=== PATIENT | male | born 1935 | race Caucasian/White ===

== ENCOUNTER 2017-07-07 10:51 | Inpatient (IN) | payer OTHER, MEDICARE ==
[2017-07-07] VITALS (8 sets, daily range): BP systolic 106–123; BP diastolic 65–83; PULSE 100–116; RESP 14–18; TEMP 96.6–97.9; O2SAT 93–99
[~2017-07-07] VITALS: Ht 172.7 cm; Wt 60.0 kg
[2017-07-07] MEDS ORDERED: LORTS PO (11:33)
--- NOTE | 2017-07-07 12:27 | PD ---
HPI Chief Complaint: Cold / Flu Symptoms Time Seen by Provider: 11:52 Travel History International Travel<30 days: No Contact w/Intl Traveler<30days: No Traveled to known affect area: No History of Present Illness HPI 81 year old male here for evaluation of cough, wheezing, nasal congestion for the last week. He denies fever or chills. He reports shortness of breath with coughing episodes. He was unable to sleep last night due to the wheezing and coughing prompting his visit this morning. He reports his only past medical history is chronic right knee pain. His primary care physician is Dr. Marcelino Reyes. He denies chest pain, palpitations, or abdominal pain. Symptom severity is moderate. No alleviating factors. PFSH Past Medical History Arthritis: Yes Tetanus Vaccination: > 5 Years Influenza Vaccination: Yes Past Surgical History Joint Replacement: Yes (right knee) Social History Alcohol Use: No Tobacco Use: No Substance Use: No Allergies-Medications (Allergen,Severity, Reaction): Coded Allergies: No Known Allergies (Unverified , 07/07/17) Reported Meds & Prescriptions Reported Meds & Active Scripts Active Reported [Lortab] 1 Tab PO DIRECTED Review of Systems Except as stated in HPI: all other systems reviewed are Neg General / Constitutional: No: Fever Respiratory: Positive: Cough, Shortness of Breath, Wheezing, Sneezing Physical Exam Narrative GENERAL: Alert elderly male in no distress. SKIN: Warm and dry. HEAD: Normocephalic. EYES: No scleral icterus. No injection or drainage. NECK: Supple, trachea midline. No JVD or lymphadenopathy. CARDIOVASCULAR: Tachycardic rate in the low 100s. Regular rate and rhythm without murmurs, gallops, or rubs. RESPIRATORY: Expiratory wheezes bilaterally. Diminished breath sounds bilaterally at bases. No accessory muscle use. GASTROINTESTINAL: Abdomen soft, non-tender, nondistended. MUSCULOSKELETAL: No cyanosis, or edema. BACK: Nontender without obvious deformity. No CVA tenderness. Data Data Last Documented VS Vital Signs Date Time Temp Pulse Resp B/P (MAP) Pulse Ox O2 Delivery O2 Flow Rate FiO2 07/07/17 14:23 107 18 107/74 (85) 98 Nasal Cannula 2.00 07/07/17 11:12 97.7 Orders Orders Basic Metabolic Panel (Bmp) (07/07/17 12:20) Complete Blood Count With Diff (07/07/17 12:20) Lactic Acid Sepsis Protocol (07/07/17 12:20) Influenzae A/B Antigen (07/07/17 12:20) Chest, Single Ap (07/07/17 12:20) Iv Access Insert/Monitor (07/07/17 12:20) Oximetry (07/07/17 12:20) Sodium Chloride 0.9% Flush (Ns Flush) (07/07/17 12:30) Albuterol-Ipratropium Neb (Duoneb Neb) (07/07/17 12:30) Methylprednisolone So Succ Inj (Solumedr (07/07/17 12:30) Prednisone (Deltasone) (07/07/17 12:30) B-Type Natriuretic Peptide (07/07/17 13:01) Act Partial Throm Time (Ptt) (07/07/17 13:01) Prothrombin Time / Inr (Pt) (07/07/17 13:01) Electrocardiogram (07/07/17 13:01) Sodium Chloride 0.9% Flush (Ns Flush) (07/07/17 13:30) Ceftriaxone Inj (Rocephin Inj) (07/07/17 13:30) Azithromycin Inj (Zithromax Inj) (07/07/17 13:30) Blood Culture (07/07/17 13:36) Troponin I (07/07/17 13:00) Urinalysis - C+S If Indicated (07/07/17 14:31) Sodium Chlorid 0.9% 500 Ml Inj (Ns 500 M (07/07/17 14:45) Sodium Chloride 0.9% Flush (Ns Flush) (07/07/17 14:45) Sodium Chloride 0.9% Flush (Ns Flush) (07/07/17 21:00) Acetaminophen (Tylenol) (07/07/17 14:45) Albuterol-Ipratropium Neb (Duoneb Neb) (07/07/17 14:45) Admit To Inpatient (07/07/17 ) Vital Signs (Adult) Q4H (07/07/17 14:45) Activity Oob With Assistance PRN (07/07/17 14:45) Notify Parameters (07/07/17 14:45) Intake + Output Q8H (07/07/17 14:45) ^ Smoking Cessation Counseling (07/07/17 14:45) Complete Blood Count With Diff (07/08/17 06:00) Basic Metabolic Panel (Bmp) (07/08/17 06:00) Resp Oxygen Christian C Titrat 1-4 L (07/07/17 ) Admit Order (Ed Use Only) (07/07/17 14:46) Azithromycin Inj (Zithromax Inj) (07/08/17 14:00) Ceftriaxone Inj (Rocephin Inj) (07/08/17 13:00) Labs Laboratory Tests Test 07/07/17 13:00 07/07/17 13:05 07/07/17 13:30 07/07/17 14:31 White Blood Count 22.1 TH/MM3 Red Blood Count 4.84 MIL/MM3 Hemoglobin 14.4 GM/DL Hematocrit 44.1 % Mean Corpuscular Volume 91.2 FL Mean Corpuscular Hemoglobin 29.8 PG Mean Corpuscular Hemoglobin Concent 32.6 % Red Cell Distribution Width 15.4 % Platelet Count 267 TH/MM3 Mean Platelet Volume 7.9 FL Neutrophils (%) (Auto) 59.7 % Lymphocytes (%) (Auto) 4.3 % Monocytes (%) (Auto) 2.1 % Eosinophils (%) (Auto) 33.7 % Basophils (%) (Auto) 0.2 % Neutrophils # (Auto) 13.3 TH/MM3 Lymphocytes # (Auto) 0.9 TH/MM3 Monocytes # (Auto) 0.5 TH/MM3 Eosinophils # (Auto) 7.4 TH/MM3 Basophils # (Auto) 0.0 TH/MM3 CBC Comment DIFF FINAL Differential Comment Blood Urea Nitrogen 21 MG/DL Creatinine 1.60 MG/DL Random Glucose 113 MG/DL Calcium Level 8.9 MG/DL Sodium Level 138 MEQ/L Potassium Level 4.4 MEQ/L Chloride Level 101 MEQ/L Carbon Dioxide Level 29.7 MEQ/L Anion Gap 7 MEQ/L Estimat Glomerular Filtration Rate 41 ML/MIN Troponin I 0.02 NG/ML Lactic Acid Level 2.2 mmol/L Prothrombin Time 12.3 SEC Prothromb Time International Ratio 1.1 RATIO Activated Partial Thromboplast Time 27.6 SEC B-Type Natriuretic Peptide 193 PG/ML Urine Color YELLOW Urine Turbidity HAZY Urine pH 5.0 Urine Specific [place] 1.019 Urine Protein TRACE mg/dL Urine Glucose (UA) NEG mg/dL Urine Ketones NEG mg/dL Urine Occult Blood LARGE Urine Nitrite NEG Urine Bilirubin NEG Urine Leukocyte Esterase SMALL Urine RBC 25-49 /hpf Urine WBC 3-5 /hpf Urine Squamous Epithelial Cells 6-8 /hpf Urine Bacteria RARE /hpf Microscopic Urinalysis Comment CULT NOT INDICATED MDM Medical Decision Making Medical Screen Exam Complete: Yes Emergency Medical Condition: Yes Interpretation(s) CBC: Leukocytosis WBC 22 BMP: BUN 21, creatinine 1.62 Lactic: 2.2 BNP: BUN 21, Cr 1.60 Troponin: Less than 0.02 EKG: Afib at 108bpm. No ST segment elevation or depression. CXR: probable mild failure Differential Diagnosis Pneumonia, influenza, CHF Narrative Course 81-year-old male with cough, wheezing, shortness of breath 1 week. His vital signs in triage showed a pulse ox of 93% on room air and heart rate of 108. Patient was placed on continuous cardiac and pulse oximetry monitoring. IV access established, lab work, chest x-ray, EKG, blood cultures ordered and pending. Patient was given prednisone and DuoNeb treatments. Lab work reviewed. Patient has markedly leukocytosis, lactic acidosis and abnormal vital signs. Patient meets sepsis criteria with presumed pneumonia as a source. Spoke with Dr. Julissa Diez who agrees to admit patient to their service. Sepsis Criteria SIRS Criteria (2 or more): Heart rate over 90, WBC > 29551, < 4000 or > 10% bands Diagnosis Primary Impression: Sepsis Qualified Codes: A41.9 - Sepsis, unspecified organism Additional Impression: New onset a-fib Admitting Information Admitting Physician Requests: Admit Francisca Browne Jul 07, 2017 12:27
[2017-07-07] MEDS ORDERED: predniSONE 20 MG TAB PO ONE (12:30)
[2017-07-07] MEDS ORDERED: methylPREDNISolone SOD SUCC 125 MG/2 ML VIAL IV PUSH ONE (12:30)
[2017-07-07] MEDS ORDERED: RESP: ALBUTEROL 2.5 MG/IPRATROPIUM 0.5 MG NEB (SCH) INH ONE (12:30)
[2017-07-07] MEDS ORDERED: SODIUM CHLORIDE 0.9% FLUSH 10 ML FLUSH IVF PRN ×2 (12:30→13:30)
--- NOTE | 2017-07-07 12:59 | RADRPT ---
EXAM DATE/TIME: 07/07/2017 12:40 [facility] COMPARISON: No previous studies available for comparison. INDICATIONS : Shortness of breath and 'wheezing' for a week , worsening last night. MEDICAL HISTORY : None. SURGICAL HISTORY : None. ENCOUNTER: Initial ACUITY: 4 - 6 days PAIN SCORE: 4/10 LOCATION: Bilateral chest FINDINGS: Heart is minimally enlarged. Mild peribronchial thickening is present with interstitial prominence. Congestive failure could be consideration. There is no pneumothorax, pleural effusion or other cons olidation. CONCLUSION: Probable mild congestive failure. Yogesh Kilgore MD FACR on July 07, 2017 at 12:56 Board Certified Radiologist. This report was verified electronically.
[2017-07-07 13:07] LABS: AUTOMATED NEUTROPHIL # 13.3 TH/MM3 (1.8-7.7); BASOPHIL % 0.2 % (0.0-2.0); EOSINOPHIL # 7.4 TH/MM3 (0-0.4); EOSINOPHIL % 33.7 % (0.0-4.0); HEMATOCRIT 44.1 % (39.0-51.0); LYMPH % 4.3 % (9.0-44.0); LYMPHOCYTE # 0.9 TH/MM3 (1.0-4.8); MEAN CELL VOLUME 91.2 FL (80.0-100.0); MEAN CORPUSCULAR HEMOGLOBIN 29.8 PG (27.0-34.0); MEAN CORPUSCULAR HGB CONC 32.6 % (32.0-36.0); MONO % 2.1 % (0.0-8.0); NEUT % 59.7 % (16.0-70.0); PLATELET COUNT 267 TH/MM3 (150-450); RED BLOOD COUNT 4.84 MIL/MM3 (4.50-5.90); RED CELL DISTRIBUTION WIDTH 15.4 % (11.6-17.2); WHITE BLOOD COUNT 22.1 TH/MM3 (4.0-11.0)
[2017-07-07 13:08] LABS: HEMO FLAGS DIFF FINAL
[2017-07-07 13:24] LABS: POTASSIUM 4.4 MEQ/L (3.5-5.1)
[2017-07-07 13:27] LABS: BICARBONATE 29.7 MEQ/L (21.0-32.0)
[2017-07-07] MEDS ORDERED: AZITHROMYCIN INJ 500 MG in SODIUM CHLOR 0.9% 250 ML INJ 250 ML IV ONE (13:30)
[2017-07-07] MEDS ORDERED: cefTRIAXone INJ 1,000 MG in SODIUM CHLORIDE 0.9% INJ 100 ML IV ONE (13:30)
[2017-07-07 13:51] LABS: APTT (PATIENT) 27.6 SEC (24.3-30.1); INTERNATIONAL NORMALIZED RATIO 1.1 RATIO; PROTHROMBIN TIME - PATIENT 12.3 SEC (9.8-11.6)
--- NOTE | 2017-07-07 14:15 | PD ---
Physical Exam Narrative I, Dr. Poole, have reviewed the advance practice practitioner's documentation and am in agreement, met with the patient face to face, made the diagnosis, and the medical decision making was done by me. *My assessment and Findings: Sepsis secondary to pneumonia vs. URI vs. new onset afib 81yo M here with cough and found to be tachycardic and O2 sat 93% on RA. HR is in the low 100s and irregular on the monitor. No history of afib. Pt wheezing bilaterally and saturating at 97% on 2L NC. Denies any chest pain. Had some sob prior to arrival. Labs reviewed, leukocytosis at 22.1. Lactic acid mildly elevated at 2.2. Creatinine is elevated at 1.60. Pt has no prior lab to compare to so presumed SUZI secondary to sepsis. Pt given methylprednisone and duonebs x3. Also given ceftriaxone and azithromycin and NS 500cc IVC. BNP is 193. CXR showed probably mild congestive failure. Pt to be admitted for sepsis secondary to likely pneumonia and new onset afib RVR. Accepted to Dr. Diez's service. Data Data Last Documented VS Vital Signs Date Time Temp Pulse Resp B/P (MAP) Pulse Ox O2 Delivery O2 Flow Rate FiO2 07/07/17 14:23 107 18 107/74 (85) 98 Nasal Cannula 2.00 07/07/17 11:12 97.7 Orders Orders Basic Metabolic Panel (Bmp) (07/07/17 12:20) Complete Blood Count With Diff (07/07/17 12:20) Lactic Acid Sepsis Protocol (07/07/17 12:20) Influenzae A/B Antigen (07/07/17 12:20) Chest, Single Ap (07/07/17 12:20) Iv Access Insert/Monitor (07/07/17 12:20) Oximetry (07/07/17 12:20) Sodium Chloride 0.9% Flush (Ns Flush) (07/07/17 12:30) Albuterol-Ipratropium Neb (Duoneb Neb) (07/07/17 12:30) Methylprednisolone So Succ Inj (Solumedr (07/07/17 12:30) Prednisone (Deltasone) (07/07/17 12:30) B-Type Natriuretic Peptide (07/07/17 13:01) Act Partial Throm Time (Ptt) (07/07/17 13:01) Prothrombin Time / Inr (Pt) (07/07/17 13:01) Electrocardiogram (07/07/17 13:01) Sodium Chloride 0.9% Flush (Ns Flush) (07/07/17 13:30) Ceftriaxone Inj (Rocephin Inj) (07/07/17 13:30) Azithromycin Inj (Zithromax Inj) (07/07/17 13:30) Blood Culture (07/07/17 13:36) Troponin I (07/07/17 13:00) Urinalysis - C+S If Indicated (07/07/17 14:31) Sodium Chlorid 0.9% 500 Ml Inj (Ns 500 M (07/07/17 14:45) Sodium Chloride 0.9% Flush (Ns Flush) (07/07/17 14:45) Sodium Chloride 0.9% Flush (Ns Flush) (07/07/17 21:00) Acetaminophen (Tylenol) (07/07/17 14:45) Albuterol-Ipratropium Neb (Duoneb Neb) (07/07/17 14:45) Admit To Inpatient (07/07/17 ) Vital Signs (Adult) Q4H (07/07/17 14:45) Activity Oob With Assistance PRN (07/07/17 14:45) Notify Parameters (07/07/17 14:45) Intake + Output Q8H (07/07/17 14:45) ^ Smoking Cessation Counseling (07/07/17 14:45) Complete Blood Count With Diff (07/08/17 06:00) Basic Metabolic Panel (Bmp) (07/08/17 06:00) Resp Oxygen Christian C Titrat 1-4 L (07/07/17 ) Admit Order (Ed Use Only) (07/07/17 14:46) Azithromycin Inj (Zithromax Inj) (07/08/17 14:00) Ceftriaxone Inj (Rocephin Inj) (07/08/17 13:00) Labs Laboratory Tests Test 07/07/17 13:00 07/07/17 13:05 07/07/17 13:30 07/07/17 14:31 White Blood Count 22.1 TH/MM3 Red Blood Count 4.84 MIL/MM3 Hemoglobin 14.4 GM/DL Hematocrit 44.1 % Mean Corpuscular Volume 91.2 FL Mean Corpuscular Hemoglobin 29.8 PG Mean Corpuscular Hemoglobin Concent 32.6 % Red Cell Distribution Width 15.4 % Platelet Count 267 TH/MM3 Mean Platelet Volume 7.9 FL Neutrophils (%) (Auto) 59.7 % Lymphocytes (%) (Auto) 4.3 % Monocytes (%) (Auto) 2.1 % Eosinophils (%) (Auto) 33.7 % Basophils (%) (Auto) 0.2 % Neutrophils # (Auto) 13.3 TH/MM3 Lymphocytes # (Auto) 0.9 TH/MM3 Monocytes # (Auto) 0.5 TH/MM3 Eosinophils # (Auto) 7.4 TH/MM3 Basophils # (Auto) 0.0 TH/MM3 CBC Comment DIFF FINAL Differential Comment Blood Urea Nitrogen 21 MG/DL Creatinine 1.60 MG/DL Random Glucose 113 MG/DL Calcium Level 8.9 MG/DL Sodium Level 138 MEQ/L Potassium Level 4.4 MEQ/L Chloride Level 101 MEQ/L Carbon Dioxide Level 29.7 MEQ/L Anion Gap 7 MEQ/L Estimat Glomerular Filtration Rate 41 ML/MIN Troponin I 0.02 NG/ML Lactic Acid Level 2.2 mmol/L Prothrombin Time 12.3 SEC Prothromb Time International Ratio 1.1 RATIO Activated Partial Thromboplast Time 27.6 SEC B-Type Natriuretic Peptide 193 PG/ML Urine Color YELLOW Urine Turbidity HAZY Urine pH 5.0 Urine Specific [place] 1.019 Urine Protein TRACE mg/dL Urine Glucose (UA) NEG mg/dL Urine Ketones NEG mg/dL Urine Occult Blood LARGE Urine Nitrite NEG Urine Bilirubin NEG Urine Leukocyte Esterase SMALL Urine RBC 25-49 /hpf Urine WBC 3-5 /hpf Urine Squamous Epithelial Cells 6-8 /hpf Urine Bacteria RARE /hpf Microscopic Urinalysis Comment CULT NOT INDICATED MDM Supervised Visit with GONZALO: Yes Interpretation(s) EKG: Afib at 108bpm. LAD. No ST segment elevation or depression. Critical Care Narrative Aggregate critical care time was 35 minutes. Time to perform other separately billable procedures was not included in the critical care time. My time did not include minutes spent treating any other patients simultaneously or on activities that did not directly contribute to the patient's treatment. The services I provided to this patient were to treat and/or prevent clinically significant deterioration that could result in: Cardiovascular collapse or . I provided critical care services requiring my management, as noted below: Chart data review, documentation time, medication orders and management, vital sign assessments/reviewing monitor data, ordering and reviewing lab tests, ordering and interpreting/reviewing x- rays and diagnostic studies, care of the patient and discussion of the patient with the admitting physicians. Sepsis Criteria SIRS Criteria (2 or more): Heart rate over 90, WBC > 43642, < 4000 or > 10% bands Sepsis Criteria (SIRS+source): Infect source susp/known Severe Sepsis (+one): Lactate >2 Diagnosis Primary Impression: Sepsis Qualified Codes: A41.9 - Sepsis, unspecified organism Admitting Information Admitting Physician Requests: Admit Scripts Metoprolol Tartrate (Lopressor) 50 Mg Tab 50 MG PO Q12HR for heart rate, #62 TAB Prov: Julissa Diez MD 07/09/17 Aspirin (Aspirin) 325 Mg Tab 325 MG PO DAILY for heart, #30 TAB 0 Refills Prov: Julissa Diez MD 07/09/17 Cefdinir (Cefdinir) 300 Mg Cap 300 MG PO BID for Infection, #20 CAP 0 Refills Prov: Julissa Diez MD 07/09/17 Dextromethorphan-Guaifenesin (Mucinex DM) 30-600 Mg Tab 1 TAB PO BID Y for CHEST CONGESTION AND/OR COUGH, #30 TAB 0 Refills Prov: Julissa Diez MD 07/09/17 Meryl Poole DO Jul 07, 2017 14:15
[2017-07-07] MEDS ORDERED: SODIUM CHLORID 0.9% 500 ML INJ 500 ML IV SCH (14:45)
[2017-07-07] MEDS ORDERED: ACETAMINOPHEN 325 MG TAB PO PRN (14:45)
[2017-07-07] MEDS ORDERED: SODIUM CHLORIDE 0.9% FLUSH 10 ML FLUSH IV FLUSH PRN (14:45)
[2017-07-07 15:09] LABS: LACTIC ACID GHOST NOT REPORTABLE
[2017-07-07 17:56] LABS: BLOOD, URINE LARGE (NEG); GLUCOSE,URINE NEG (NEG); KETONE, URINE NEG (NEG); NITRITE,URINE NEG (NEG)
[2017-07-07] MEDS ORDERED: ACETAMINOPHEN/HYDROcodone 325 MG/5 MG TAB PO PRN (18:00)
[2017-07-07] MEDS ORDERED: PSEUDOEPHEDRINE HCL 30 MG TAB PO PRN (18:00)
--- NOTE | 2017-07-07 18:04 | HHI.HP ---
HPI Service [facility] Primary Care Physician Marcelino Rios MD Admission Diagnosis SEPSIS, NEW ONSET AFIB, PNA Diagnoses: Chief Complaint: Cough and shortness of breath Travel History International Travel<30 Days: No Contact w/Intl Traveler <30 Da: No Traveled to Known Affected Are: No Sepsis Criteria SIRS Criteria (2 or more): Heart rate over 90, RR > 20 or PaCO2 < 32, WBC > 24445, < 4000 or > 10% bands Sepsis Criteria (SIRS+source): Infect source susp/known Severe Sepsis (+one): Lactate >2 Criteria Outcome: Meets severe sepsis criteria History of Present Illness This patient is a 81-year-old gentleman who had 2-3 days of increased shortness of breath and work of breathing. He had some sputum production and sinus drainage. He came to the emergency room with complaints of wheezing. He is 97 % on 2 L. He had seen his primary doctor as he felt too ill. Came to the emergency room. He does have a history of smoking 67 years at a pack A day having quit in March when he had a right knee surgery. He also had significant alcohol dependency which she quit in March as well. He has presented now with new onset atrial fibrillation with a rate in the low 100s, and with signs and symptoms of sepsis related to probable pneumonia. Is given IV antibiotics and a bit better. He notes no fevers and no sick contacts. No recent travel. He did get some steroids and DuoNeb nebs in the emergency room and felt a bit better. He's been admitted to the hospital for further evaluation and treatment Review of Systems Constitutional: DENIES: Diaphoretic episodes, Fatigue, Fever, Weight gain, Weight loss, Chills, Dizziness, Change in appetite, Night Sweats Eyes: DENIES: Blurred vision, Diplopia, Eye inflammation, Eye pain, Vision loss , Photosensitivity, Double Vision Ears, nose, mouth, throat: DENIES: Tinnitus, Hearing loss, Vertigo, Nasal discharge, Oral lesions, Throat pain, Hoarseness, Ear Pain, Running Nose, Epistaxis, Sinus Pain, Toothache, Odynophagia Respiratory: COMPLAINS OF: Cough, Wheezing, Sputum production, Shortness of breath, DENIES: Apneas, Snoring, Hemoptysis Cardiovascular: DENIES: Chest pain, Palpitations, Syncope, Dyspnea on Exertion , PND, Lower Extremity Edema, Orthopnea, Claudication Gastrointestinal: DENIES: Abdominal pain, Black stools, Bloody stools, Constipation, Diarrhea, Nausea, Vomiting, Difficulty Swallowing, Anorexia Genitourinary: DENIES: Sexual dysfunction, Urinary frequency, Urinary incontinence, Urgency, Hematuria, Dysuria, Nocturia, Penile Discharge, Testicular Pain, Testicular Swelling Musculoskeletal: COMPLAINS OF: Joint pain, DENIES: Muscle aches, Stiffness, Joint Swelling, Back pain, Neck pain Integumentary: DENIES: Abnormal pigmentation, Nail changes, Pruritus, Rash Hematologic/lymphatic: DENIES: Bruising, Lymphadenopathy Immunologic/allergic: DENIES: Eczema, Urticaria Neurologic: DENIES: Abnormal gait, Headache, Localized weakness, Paresthesias, Seizures, Speech Problems, Tremor, Poor Balance Psychiatric: DENIES: Anxiety, Confusion, Mood changes, Depression, Hallucinations, Agitation, Suicidal Ideation, Homicidal Ideation, Delusions Except as stated in HPI: all other systems reviewed are Neg Past Family Social History Allergies: Coded Allergies: No Known Allergies (Unverified , 07/07/17) Physical Exam Vital Signs Vital Signs Date Time Temp Pulse Resp B/P (MAP) Pulse Ox O2 Delivery O2 Flow Rate FiO2 07/07/17 16:39 07/07/17 16:30 96.6 111 14 123/83 (96) 96 07/07/17 15:25 103 16 109/81 (90) 98 Room Air 07/07/17 14:23 107 18 107/74 (85) 98 Nasal Cannula 2.00 07/07/17 13:23 116 18 98 Nasal Cannula 2.00 07/07/17 13:06 99 Nasal Cannula 2.00 07/07/17 11:30 Room Air 07/07/17 11:12 97.7 108 18 107/65 (79) 93 Physical Exam GENERAL: This is a well-nourished, well-developed patient, was coughing and has sinus drainage SKIN: No rashes, ecchymoses or lesions. Cool and dry. HEAD: Atraumatic. Normocephalic. No temporal or scalp tenderness. EYES: Pupils equal round and reactive. Extraocular motions intact. No scleral icterus. No injection or drainage. ENT: Nose without bleeding, purulent drainage or septal hematoma. Throat without erythema, tonsillar hypertrophy or exudate. Uvula midline. Airway patent. NECK: Trachea midline. No JVD or lymphadenopathy. Supple, nontender, no meningeal signs. CARDIOVASCULAR: Atrial tachycardia irregular but without murmurs, gallops, or rubs. RESPIRATORY: Clear to auscultation. Breath sounds equal bilaterally. No wheezes , rales, or rhonchi. GASTROINTESTINAL: Abdomen soft, non-tender, nondistended. No hepato-splenomegaly , or palpable masses. No guarding. MUSCULOSKELETAL: Bilateral hands swan neck deformities and ulnar deviation consistent with rheumatoid arthritis, right knee surgery Extremities without clubbing, cyanosis, or edema. No joint tenderness, effusion, or edema noted. No calf tenderness. Negative Homans sign bilaterally. NEUROLOGICAL: Awake and alert. Cranial nerves II through XII intact. Motor and sensory grossly within normal limits. Five out of 5 muscle strength in all muscle groups. Normal speech. Laboratory Laboratory Tests Test 07/07/17 13:00 07/07/17 13:05 07/07/17 13:30 07/07/17 14:31 White Blood Count 22.1 Red Blood Count 4.84 Hemoglobin 14.4 Hematocrit 44.1 Mean Corpuscular Volume 91.2 Mean Corpuscular Hemoglobin 29.8 Mean Corpuscular Hemoglobin Concent 32.6 Red Cell Distribution Width 15.4 Platelet Count 267 Mean Platelet Volume 7.9 Neutrophils (%) (Auto) 59.7 Lymphocytes (%) (Auto) 4.3 Monocytes (%) (Auto) 2.1 Eosinophils (%) (Auto) 33.7 Basophils (%) (Auto) 0.2 Neutrophils # (Auto) 13.3 Lymphocytes # (Auto) 0.9 Monocytes # (Auto) 0.5 Eosinophils # (Auto) 7.4 Basophils # (Auto) 0.0 CBC Comment DIFF FINAL Differential Comment Blood Urea Nitrogen 21 Creatinine 1.60 Random Glucose 113 Calcium Level 8.9 Sodium Level 138 Potassium Level 4.4 Chloride Level 101 Carbon Dioxide Level 29.7 Anion Gap 7 Estimat Glomerular Filtration Rate 41 Troponin I 0.02 Lactic Acid Level 2.2 Prothrombin Time 12.3 Prothromb Time International Ratio 1.1 Activated Partial Thromboplast Time 27.6 B-Type Natriuretic Peptide 193 Test 07/07/17 15:40 Lactic Acid Level 2.1 Date/Time Source Procedure Growth Status 07/07/17 13:40 Blood Peripheral Aerobic Blood Culture Pending Received 07/07/17 13:40 Blood Peripheral Anaerobic Blood Culture Pending Received 07/07/17 13:00 Nasal Washing Influenza Types A,B Antigen (VIV) - Final NEGATIVE FOR FLU A AND B ANTIGEN.... Complete Result Diagram: 07/07/17 1300 07/07/17 1300 Imaging Last Impressions Chest X-Ray 07/07/17 1220 Signed Impressions: Service Date/Time: Friday, July 07, 2017 12:40 - CONCLUSION: Probable mild congestive failure. Yogesh Kilgore MD FACR Septic Shock Reassessment Heart: Irregular Lungs: Course, Crackles Caprini VTE Risk Assessment Caprini VTE Risk Assessment: Mod/High Risk (score >= 2) Caprini Risk Assessment Model Point Value = 1 Point Value = 2 Point Value = 3 Point Value = 5 Age 41-60 Minor surgery BMI > 25 kg/m2 Swollen legs Varicose veins or History of unexplained or recurrent spontaneous Oral contraceptives or hormone replacement Sepsis (< 1 month) Serious lung disease, including pneumonia (< 1 month) Abnormal pulmonary function Acute myocardial infarction Congestive heart failure (< 1 month) History of inflammatory bowel disease Medical patient at bed rest Age 61-74 Arthroscopic surgery Major open surgery (> 45 min) Laparoscopic surgery (> 45 min) Malignancy Confined to bed (> 72 hours) Immobilizing plaster cast Central venous access Age >= 75 History of VTE Family history of VTE Factor V Leiden Prothrombin [id number] Lupus anticoagulant Anticardiolipin antibodies Elevated serum homocysteine Heparin-induced thrombocytopenia Other congenital or acquired thrombophilia Stroke (< 1 month) Elective arthroplasty Hip, pelvis, or leg fracture Acute spinal cord injury (< 1 month) Prophylaxis Regimen Total Risk Factor Score Risk Level Prophylaxis Regimen 0-1 Low Early ambulation 2 Moderate Order ONE of the following: *Sequential Compression Device (SCD) *Heparin 5000 units SQ BID 3-4 Higher Order ONE of the following medications: *Heparin 5000 units SQ TID *Enoxaparin/Lovenox 40 mg SQ daily (WT < 150 kg, CrCl > 30 mL/min) *Enoxaparin/Lovenox 30 mg SQ daily (WT < 150 kg, CrCl > 10-29 mL/min) *Enoxaparin/Lovenox 30 mg SQ BID (WT < 150 kg, CrCl > 30 mL/min) AND/OR *Sequential Compression Device (SCD) 5 or more Highest Order ONE of the following medications: *Heparin 5000 units SQ TID (Preferred with Epidurals) *Enoxaparin/Lovenox 40 mg SQ daily (WT < 150 kg, CrCl > 30 mL/min) *Enoxaparin/Lovenox 30 mg SQ daily (WT < 150 kg, CrCl > 10-29 mL/min) *Enoxaparin/Lovenox 30 mg SQ BID (WT < 150 kg, CrCl > 30 mL/min) AND *Sequential Compression Device (SCD) Assessment and Plan Problem List: (1) Pneumonia ICD Code: J18.9 - Pneumonia, unspecified organism Plan: With evidence of sepsis with leukocytosis, acute kidney injury, likely lactic acid Continue antibiotics for community acquired negative Follow-up sputum Patient with a history of smoking and no previous diagnosis of COPD (2) New onset a-fib ICD Code: I48.91 - Unspecified atrial fibrillation Status: Acute Plan: Etiology unclear, follow-up electrolytes, echocardiogram, continue telemetry BB lmwh Assessment and Plan Plan of care to be determined by Hospital course Code Status Full code Discussed Condition With Patient, JULITA Cadet Physician Certification 2 Midnight Certification Type: Admission for Inpatient Services Order for Inpatient Services The services are ordered in accordance with Medicare regulations or non- Medicare payer requirements, as applicable. In the case of services not specified as inpatient-only, they are appropriately provided as inpatient services in accordance with the 2-midnight benchmark. Estimated LOS (days): 3 3 days is the estimated time the patient will need to remain in the hospital, assuming treatment plan goals are met and no additional complications. Post-Hospital Plan: Julissa Blair MD Jul 07, 2017 18:04
[2017-07-07] MEDS: ENOXAPARIN SODIUM 60 MG/0.6 ML SYRINGE SQ SCH (18:15)
[2017-07-07] MEDS: guaiFENesin/CODEINE SYRUP 200 MG/20 MG/10 ML CUP PO PRN (18:15)
[2017-07-07 18:30] LABS: URINE COLOR YELLOW (YELLW/STRAW)
[2017-07-07 18:31] LABS: BACTERIA, URINE RARE /hpf; COMMENT (UR) CULT NOT INDICATED; CULTURE IF INDICATED CULT NOT INDICATED
[2017-07-07] MEDS: SODIUM CHLORIDE 0.9% FLUSH 10 ML FLUSH IV FLUSH SCH (21:00)
[2017-07-07] MEDS: METOPROLOL TARTRATE 50 MG TAB PO SCH (21:56)
[2017-07-07] MEDS: RESP: ALBUTEROL 2.5 MG/IPRATROPIUM 0.5 MG NEB (PRN) INH (22:08)
[2017-07-08] VITALS (8 sets, daily range): BP systolic 86–103; BP diastolic 53–74; PULSE 76–90; RESP 18–22; TEMP 96.1–98.1; O2SAT 94–99
[2017-07-08] MEDS: ENOXAPARIN SODIUM 60 MG/0.6 ML SYRINGE SQ SCH ×2 (06:00→17:29)
[2017-07-08] MEDS: guaiFENesin/CODEINE SYRUP 200 MG/20 MG/10 ML CUP PO PRN ×2 (07:33→14:41)
[2017-07-08 08:26] LABS: AUTOMATED NEUTROPHIL # 12.1 TH/MM3 (1.8-7.7); BASOPHIL # 0.6 TH/MM3 (0-0.2); BASOPHIL % 3.5 % (0.0-2.0); EOSINOPHIL # 1.1 TH/MM3 (0-0.4); EOSINOPHIL % 6.7 % (0.0-4.0); HEMATOCRIT 37.8 % (39.0-51.0); HEMO FLAGS DIFF FINAL; LYMPH % 10.3 % (9.0-44.0); LYMPHOCYTE # 1.7 TH/MM3 (1.0-4.8); MEAN CELL VOLUME 90.8 FL (80.0-100.0); MEAN CORPUSCULAR HEMOGLOBIN 29.9 PG (27.0-34.0); MEAN CORPUSCULAR HGB CONC 32.9 % (32.0-36.0); MONO % 4.7 % (0.0-8.0); NEUT % 74.8 % (16.0-70.0); PLATELET COUNT 219 TH/MM3 (150-450); RED BLOOD COUNT 4.17 MIL/MM3 (4.50-5.90); WHITE BLOOD COUNT 16.3 TH/MM3 (4.0-11.0)
[2017-07-08 08:36] LABS: BICARBONATE 29.6 MEQ/L (21.0-32.0)
[2017-07-08] MEDS: predniSONE 20 MG TAB PO SCH ×2 (09:20→20:41)
[2017-07-08] MEDS: METOPROLOL TARTRATE 50 MG TAB PO SCH ×2 (09:20→20:42)
[2017-07-08] MEDS: SODIUM CHLORIDE 0.9% FLUSH 10 ML FLUSH IV FLUSH SCH ×2 (09:20→20:42)
[2017-07-08] MEDS: RESP: ALBUTEROL 2.5 MG/IPRATROPIUM 0.5 MG NEB (PRN) INH (11:50)
[2017-07-08] MEDS ORDERED: cefTRIAXone INJ 1,000 MG in SODIUM CHLORIDE 0.9% INJ 100 ML IV SCH (13:00)
--- NOTE | 2017-07-08 13:44 | HHI.PR ---
Subjective Remarks Patient seen and evaluated today in follow-up for pneumonia with improvement today. Atrial fibrillation is improved Heart rate improved, white cell count improved and cough is resolved Objective Vitals Vital Signs Date Time Temp Pulse Resp B/P (MAP) Pulse Ox O2 Delivery O2 Flow Rate FiO2 07/08/17 11:53 96 07/08/17 11:50 97.6 76 20 86/53 (64) 94 07/08/17 08:00 97 07/08/17 07:50 96.5 84 20 91/55 (67) 97 07/08/17 04:04 07/08/17 00:58 98.1 90 22 99/74 (82) 98 07/07/17 22:10 98 Nasal Cannula 2.00 07/07/17 20:44 97.9 100 18 106/79 (88) 97 07/07/17 16:39 07/07/17 16:30 96.6 111 14 123/83 (96) 96 07/07/17 15:25 103 16 109/81 (90) 98 Room Air 07/07/17 14:23 107 18 107/74 (85) 98 Nasal Cannula 2.00 I/O 07/07/17 07/07/17 07/07/17 07/08/17 07/08/17 07/08/17 07:00 15:00 23:00 07:00 15:00 23:00 Intake Total 350 ml 500 ml Output Total 350 ml Balance 350 ml 500 ml -350 ml Intake IV Total 350 ml 500 ml Output Urine Total 350 ml # Voids 2 # Bowel Movements 0 0 Result Diagram: 07/08/17 0805 07/08/17 0805 Imaging Last Impressions Chest X-Ray 07/07/17 1220 Signed Impressions: Service Date/Time: Friday, July 07, 2017 12:40 - CONCLUSION: Probable mild congestive failure. Yogesh Kilgore MD FACR Objective Remarks Orthopedic changes consistent with rheumatoid arthritis GENERAL: This is a well-nourished, well-developed patient, in no apparent distress. CARDIOVASCULAR: Regular rate and rhythm without murmurs, gallops, or rubs. RESPIRATORY: Clear to auscultation. Breath sounds equal bilaterally. No wheezes , rales, or rhonchi. GASTROINTESTINAL: Abdomen soft, non-tender, nondistended. Normal active bowel sounds MUSCULOSKELETAL: Extremities without clubbing, cyanosis, or edema. NEURO: Alert & Oriented x4 to person, place, time, situation. Moves all ext x4 A/P Problem List: (1) Pneumonia ICD Code: J18.9 - Pneumonia, unspecified organism Plan: With evidence of sepsis with leukocytosis, acute kidney injury, elevated lactic acid Continue antibiotics for community acquired pneumonia Unable to obtain sputum Patient with a history of smoking and no previous diagnosis of COPD (2) New onset a-fib ICD Code: I48.91 - Unspecified atrial fibrillation Status: Acute Plan: Etiology unclear but likely due to sepsis, resolved and in fact his blood pressure is low , follow-up electrolytes, echocardiogram, continue telemetry DC beta aime and follow lmwh daily (3) RA (rheumatoid arthritis) ICD Code: M06.9 - Rheumatoid arthritis, unspecified Plan: Stable but with gross deformities of the hands and right knee ( postoperatively also) Discharge Planning 2-3 d Julissa Diez MD Jul 08, 2017 13:44
[2017-07-08] MEDS ORDERED: AZITHROMYCIN INJ 500 MG in SODIUM CHLOR 0.9% 250 ML INJ 250 ML IV SCH (14:00)
--- NOTE | 2017-07-08 18:38 | ECHRPT ---
Indication: A FIB FLUTTER CONCLUSIONS Normal left ventricular size. Wall thickness is normal. The left ventricular systolic function is severely reduced with an estimated ejection fraction in th e range of 35-40%. The right ventricular systoilc function is mildly decreased. Mitral annular calcification is present. Aortic valve sclerosis is present. BP: / HR: Rhythm: MEASUREMENTS (Male / Female) Normal Values Technical Quality:Good 2D ECHO LV Diastolic Diameter PLAX 4.2 cm 4.2 - 5.9 / 3.9 - 5.3 cm LV Systolic Diameter PLAX 3.5 cm IVS Diastolic Thickness 1.0 cm 0.6 - 1.0 / 0.6 - 0.9 cm LVPW Diastolic Thickness 0.6 cm 0.6 - 1.0 / 0.6 - 0.9 cm LV Relative Wall Thickness 0.4 RV Internal Dim ED PLAX 1.5 cm DOPPLER Mitral E Point Velocity 83.4 cm/s TR Peak Velocity 247.0 cm/s TR Peak Gradient 24.4 mmHg FINDINGS LEFT VENTRICLE Normal left ventricular size. Wall thickness is normal. The left ventricular systolic function is severely reduced with an estimated ejection fraction in th e range of 30-35%. RIGHT VENTRICLE The right ventricular systoilc function is mildly decreased. LEFT ATRIUM The left atrial size is normal. RIGHT ATRIUM The right atrial size is normal. ATRIAL SEPTUM Normal atrial septal thickness without atrial level shunting by limited color doppler interrogation. AORTA The aortic root and proximal ascending aorta are normal in size on limited imaging. MITRAL VALVE Mitral annular calcification is present. AORTIC VALVE Aortic valve sclerosis is present. TRICUSPID VALVE Structurally normal tricuspid valve. No tricuspid valve stenosis or regurgitation. PULMONARY VALVE The pulmonary valve is not well visualized. VESSELS The inferior vena cava is normal in size. PERICARDIUM No pericardial effusion. William Puentes MD, FACC, FSCAI (Electronically Signed) Final Date:08 July 2017 18:37
[2017-07-09] VITALS: BP 117/64; PULSE 89; RESP 18; TEMP 96.4; O2SAT 98
[2017-07-09] MEDS: ENOXAPARIN SODIUM 60 MG/0.6 ML SYRINGE SQ SCH (05:30)
[2017-07-09] MEDS: guaiFENesin/CODEINE SYRUP 200 MG/20 MG/10 ML CUP PO PRN (05:34)
[2017-07-09] MEDS ORDERED: CEFD300C PO (07:49)
[2017-07-09] MEDS ORDERED: HUMIBIDDM PO (07:49)
--- NOTE | 2017-07-09 07:49 | HHI.DCPOC ---
Discharge Care Plan Diagnosis: (1) Sepsis (2) Pneumonia Goals to Promote Your Health * To prevent worsening of your condition and complications * To maintain your health at the optimal level Directions to Meet Your Goals Take your medications as prescribed Follow your dietary instruction Follow activity as directed Keep your appointments as scheduled Take your immunizations and boosters as scheduled If your symptoms worsen call your PCP, if no PCP go to Urgent Care Center or Emergency Room Smoking is Dangerous to Your Health. Avoid second hand smoke Call the 24-hour hour crisis hotline for domestic abuse at Julissa Diez MD Jul 09, 2017 07:49
[2017-07-09] MEDS ORDERED: ASPI-183 PO (07:53)
[2017-07-09] MEDS ORDERED: METO-309 PO (07:53)
--- NOTE | 2017-07-09 07:54 | HHI.DS ---
Discharge Summary Admission Date Jul 07, 2017 at 14:49 Discharge Date: Jul 09, 2017 Admitting Diagnosis SEPSIS, NEW ONSET AFIB, PNA (1) Pneumonia ICD Code: J18.9 - Pneumonia, unspecified organism (2) New onset a-fib ICD Code: I48.91 - Unspecified atrial fibrillation Status: Acute (3) RA (rheumatoid arthritis) ICD Code: M06.9 - Rheumatoid arthritis, unspecified Procedures none Brief History - From Admission This patient is a 81-year-old gentleman who had 2-3 days of increased shortness of breath and work of breathing. He had some sputum production and sinus drainage. He came to the emergency room with complaints of wheezing. He is 97 % on 2 L. He had seen his primary doctor as he felt too ill. Came to the emergency room. He does have a history of smoking 67 years at a pack A day having quit in March when he had a right knee surgery. He also had significant alcohol dependency which she quit in March as well. He has presented now with new onset atrial fibrillation with a rate in the low 100s, and with signs and symptoms of sepsis related to probable pneumonia. Is given IV antibiotics and a bit better. He notes no fevers and no sick contacts. No recent travel. He did get some steroids and DuoNeb nebs in the emergency room and felt a bit better. He's been admitted to the hospital for further evaluation and treatment CBC/BMP: 07/08/17 0805 07/08/17 0805 Significant Findings Laboratory Tests Test 07/07/17 13:00 07/07/17 13:05 07/07/17 13:30 07/07/17 14:31 White Blood Count 22.1 TH/MM3 (4.0-11.0) Lymphocytes (%) (Auto) 4.3 % (9.0-44.0) Eosinophils (%) (Auto) 33.7 % (0.0-4.0) Neutrophils # (Auto) 13.3 TH/MM3 (1.8-7.7) Lymphocytes # (Auto) 0.9 TH/MM3 (1.0-4.8) Eosinophils # (Auto) 7.4 TH/MM3 (0-0.4) Blood Urea Nitrogen 21 MG/DL (7-18) Creatinine 1.60 MG/DL (0.60-1.30) Random Glucose 113 MG/DL (74-106) Estimat Glomerular Filtration Rate 41 ML/MIN (>89) Lactic Acid Level 2.2 mmol/L (0.4-2.0) Prothrombin Time 12.3 SEC (9.8-11.6) B-Type Natriuretic Peptide 193 PG/ML (0-100) Urine Turbidity HAZY (CLEAR) Urine Occult Blood LARGE (NEG) Urine Leukocyte Esterase SMALL (NEG) Urine RBC 25-49 /hpf (0-3) Urine Squamous Epithelial Cells 6-8 /hpf (0-5) Urine Bacteria RARE /hpf (NONE) Test 07/07/17 15:40 07/08/17 08:05 Lactic Acid Level 2.1 mmol/L (0.4-2.0) White Blood Count 16.3 TH/MM3 (4.0-11.0) Red Blood Count 4.17 MIL/MM3 (4.50-5.90) Hemoglobin 12.4 GM/DL (13.0-17.0) Hematocrit 37.8 % (39.0-51.0) Neutrophils (%) (Auto) 74.8 % (16.0-70.0) Eosinophils (%) (Auto) 6.7 % (0.0-4.0) Basophils (%) (Auto) 3.5 % (0.0-2.0) Neutrophils # (Auto) 12.1 TH/MM3 (1.8-7.7) Eosinophils # (Auto) 1.1 TH/MM3 (0-0.4) Basophils # (Auto) 0.6 TH/MM3 (0-0.2) Blood Urea Nitrogen 23 MG/DL (7-18) Random Glucose 120 MG/DL (74-106) Calcium Level 8.4 MG/DL (8.5-10.1) Estimat Glomerular Filtration Rate 64 ML/MIN (>89) Imaging Last Impressions Chest X-Ray 07/07/17 1220 Signed Impressions: Service Date/Time: Friday, July 07, 2017 12:40 - CONCLUSION: Probable mild congestive failure. Yogesh Kilgore MD FACR PE at Discharge Orthopedic changes consistent with rheumatoid arthritis GENERAL: This is a well-nourished, well-developed patient, in no apparent distress. CARDIOVASCULAR: Regular rate and rhythm without murmurs, gallops, or rubs. RESPIRATORY: Clear to auscultation. Breath sounds equal bilaterally. No wheezes , rales, or rhonchi. GASTROINTESTINAL: Abdomen soft, non-tender, nondistended. Normal active bowel sounds MUSCULOSKELETAL: Extremities without clubbing, cyanosis, or edema. NEURO: Alert & Oriented x4 to person, place, time, situation. Moves all ext x4 Pt update on day of discharge Patient seen and evaluated in follow-up for pneumonia and atrial fibrillation which has resolved. He feels well and will like to go home. I did discuss patient's diagnosis and treatment plan. He has had some coughing but overall feels well Hospital Course Patient is seen and treated for pneumonia which is community-acquired. He did well with antibiotics. He had some residual coughing. He did have transient atrial fibrillation which resolved with improvement in his respiratory distress. His sepsis resolved as well. It was discharged on oral antibiotics and aspirin Pt Condition on Discharge: Good Discharge Disposition: Discharge Home Discharge Time: <= 30 minutes Discharge Instructions DIET: Follow Instructions for: As Tolerated, No Restrictions Activities you can perform: Regular-No Restrictions Follow up Referrals: PCP Follow-up New Medications: Aspirin (Aspirin) 325 Mg Tab 325 MG PO DAILY for heart, #30 TAB 0 Refills Cefdinir (Cefdinir) 300 Mg Cap 300 MG PO BID for Infection, #20 CAP 0 Refills Dextromethorphan-Guaifenesin (Mucinex DM) 30-600 Mg Tab 1 TAB PO BID PRN for CHEST CONGESTION AND/OR COUGH, #30 TAB 0 Refills Metoprolol Tartrate (Lopressor) 50 Mg Tab 50 MG PO Q12HR for heart rate, #62 TAB Continued Medications: [Lortab] () 1 TAB PO DIRECTED Julissa Diez MD Jul 09, 2017 07:54
[2017-07-09 08:00] VITALS: BP 112/94; PULSE 95; RESP 16; TEMP 97.5; O2SAT 97
[2017-07-09] MEDS: predniSONE 20 MG TAB PO SCH (08:09)
[2017-07-09] MEDS: METOPROLOL TARTRATE 50 MG TAB PO SCH (08:09)
[2017-07-09] MEDS: SODIUM CHLORIDE 0.9% FLUSH 10 ML FLUSH IV FLUSH SCH (08:10)
[2017-07-09 11:28] VITALS: O2SAT 94
--- NOTE | 2017-07-09 23:30 | EKG ---
Date Performed: 07/07/2017 Time Performed: 13:10:41 PTAGE: 81 years EKG: ATRIAL FIBRILLATION WITH RAPID VENTRICULAR RESPONSE MARKED LEFT AXIS DEVIATION ABNORMAL ECG NO PREVIOUS TRACING DOCTOR: Prakash Ortiz Interpretating Date/Time 07/09/2017 23:29:03
== END 2017-07-09 11:30 | disposition home or self-care (01) | DRG 871 ==
LOC: PHEFT 10:51 → PHEDA 14:49 → PH3A 16:33
PROVIDERS: ADMIT Hospitalist; ATTEND Hospitalist
DX: A41.9 Sepsis, unspecified organism (principal); J18.9 Pneumonia, unspecified organism; N17.9 Acute kidney failure, unspecified; E87.2 Acidosis; I48.91 Unspecified atrial fibrillation; M06.9 Rheumatoid arthritis, unspecified; F10.21 Alcohol dependence, in remission; Z79.82 Long term (current) use of aspirin; Z79.899 Other long term (current) drug therapy; Z87.891 Personal history of nicotine dependence
CPT/HCPCS: 71010; 80048; 81001; 83605; 83880; 84484; 85025; 85610; 85730; 87040; 87804; 93005; 93306; 94640; 94664; 96365; 96368; J0456; J0696; J1650; J7040; J7050; J7512

== ENCOUNTER 2017-10-02 16:24 | Inpatient (IN) | payer OTHER, MEDICARE ==
[~2017-10-02] VITALS: Ht 172.7 cm; Wt 52.0 kg
[2017-10-02] VITALS (7 sets, daily range): BP systolic 93–149; BP diastolic 59–81; PULSE 79–102; RESP 16–18; TEMP 96.5–97.5; O2SAT 94–100
[~2017-10-02 16:24] MED LIST: ASPI-183 PO; CEFD300C PO; HUMIBIDDM PO; LORTS PO; METO-309 PO
[2017-10-02] MEDS ORDERED: OXYC1CAP PO (16:51)
--- NOTE | 2017-10-02 16:59 | PD ---
HPI Chief Complaint: Fall Time Seen by Provider: 16:39 Travel History International Travel<30 days: No Contact w/Intl Traveler<30days: No Traveled to known affect area: No History of Present Illness HPI The patient was last seen on Monday when the patient himself gives a history of falling out of bed and not being able to get back up. Patient denies having any pain on his hips or the rest of his body as a reason for him not to get up. He just simply stated that he was too weak to get back up. Family found him about 4 days later and they brought him in for evaluation. Patient denies any fever, nausea, vomiting, diarrhea, chest pain, back pain, abdominal pain, No alleviating or aggravating factors No known drug allergies Patient has a past medical history significant for 2 knee operations right knee replacement atrial fibrillation apparently, along with facial shingles history which is being currently treated for PFSH Past Medical History Arthritis: Yes Cancer: No Cardiovascular Problems: Yes (AF) Diminished Hearing: Yes Endocrine: No Gastrointestinal Disorders: No Genitourinary: No Implanted Vascular Access Dvce: No Musculoskeletal: Yes (Knee issues) Neurologic: No Psychiatric: No Reproductive: No Respiratory: No Shingles: Yes Tetanus Vaccination: Unknown Past Surgical History Abdominal Surgery: No Cardiac Surgery: No Ear Surgery: No Endocrine Surgery: No Eye Surgery: No Genitourinary Surgery: No Gynecologic Surgery: No Joint Replacement: Yes (right knee) Oral Surgery: No Thoracic Surgery: No Social History Alcohol Use: No Tobacco Use: No Substance Use: No Allergies-Medications (Allergen,Severity, Reaction): Coded Allergies: No Known Allergies (Unverified , 10/02/17) Reported Meds & Prescriptions Reported Meds & Active Scripts Active Reported Metoprolol Tartrate 50 Mg Tab 50 Mg PO BID Tamsulosin (Tamsulosin HCl) 0.4 Mg Cap 0.4 Mg HS Doxazosin (Doxazosin Mesylate) 1 Mg Tab 1 Mg PO DAILY Hydrocodone-Acetaminophen 5-325 mg Tab 1 Tab PO Q8H PRN Review of Systems General / Constitutional: Positive: Other, No: Fever Eyes: No: Visual changes HENT: No: Headaches Cardiovascular: No: Chest Pain or Discomfort Respiratory: No: Shortness of Breath Gastrointestinal: No: Abdominal Pain Genitourinary: No: Dysuria Musculoskeletal: No: Pain Skin: No Rash Neurologic: No: Weakness Psychiatric: No: Depression Endocrine: No: Polydipsia Hematologic/Lymphatic: No: Easy Bruising Physical Exam Narrative GENERAL: Cachectic, elderly, male patient answering questions appropriately. SKIN: Warm and dry. Patient does have crusting lesions noted over V1 area including the tip of his nose right forehead right eyelid, he is being treated for shingles. HEAD: Atraumatic. Normocephalic. EYES: Pupils equal and round. No scleral icterus. No injection or drainage. ENT: No nasal bleeding or discharge. Mucous membranes pink and moist. NECK: Trachea midline. No JVD. CARDIOVASCULAR: Regular rate and rhythm. RESPIRATORY: No accessory muscle use. Clear to auscultation. Breath sounds equal bilaterally. GASTROINTESTINAL: Abdomen soft, non-tender, nondistended. Hepatic and splenic margins not palpable. MUSCULOSKELETAL: Extremities without clubbing, cyanosis, or edema. No obvious deformities. NEUROLOGICAL: Awake and alert. No obvious cranial nerve deficits. Motor grossly within normal limits. Five out of 4 muscle strength in the arms and legs. Normal speech. PSYCHIATRIC: Appropriate mood and affect; insight and judgment normal. Data Data Last Documented VS Vital Signs Date Time Temp Pulse Resp B/P (MAP) Pulse Ox O2 Delivery O2 Flow Rate FiO2 10/02/17 17:07 16 95 Room Air 10/02/17 16:25 97.5 149/59 (89) Orders Orders Electrocardiogram (10/02/17 16:52) Complete Blood Count With Diff (10/02/17 16:52) Comprehensive Metabolic Panel (10/02/17 16:52) Creatine Kinase (Cpk) (10/02/17 16:52) Ckmb (Isoenzyme) Profile (10/02/17 16:52) Troponin I (10/02/17 16:52) B-Type Natriuretic Peptide (10/02/17 16:52) Prothrombin Time / Inr (Pt) (10/02/17 16:52) Act Partial Throm Time (Ptt) (10/02/17 16:52) Lipase (10/02/17 16:52) Urinalysis - C+S If Indicated (10/02/17 16:52) Thyroid Stimulating Hormone (10/02/17 16:52) Chest, Single Ap (10/02/17 16:52) Ct Brain W/O Iv Contrast(Rout) (10/02/17 16:52) Pelvis, Ap Only (Routine) (10/02/17 16:52) Iv Access Insert/Monitor (10/02/17 16:52) Ecg Monitoring (10/02/17 16:52) Oximetry (10/02/17 16:52) CKMB (10/02/17 17:00) CKMB% (10/02/17 17:00) Ct Abd/Pel W Iv Contrast(Rout) (10/02/17 18:09) Admit To Inpatient (10/02/17 ) Vital Signs (Adult) Q4H (10/02/17 18:29) Activity Oob With Assistance (10/02/17 18:29) Early Childhood Coordinator / Telemetry .CONTINUOUS (10/02/17 18:29) Intake + Output CHRISTY.QSHIFT (10/02/17 18:29) Diet Heart Healthy (10/02/17 Dinner) Sodium Chlor 0.45% 1000 Ml Inj (1/2 Ns 1 (10/02/17 18:29) Sodium Chloride 0.9% Flush (Ns Flush) (10/02/17 18:30) Sodium Chloride 0.9% Flush (Ns Flush) (10/02/17 21:00) Acetaminophen (Tylenol) (10/02/17 18:30) Ondansetron Inj (Zofran Inj) (10/02/17 18:30) Comprehensive Metabolic Panel (10/03/17 06:00) Complete Blood Count With Diff (10/03/17 06:00) Resp Oxygen Christian C Titrat 1-4 L (10/02/17 ) Pt Request For Service (10/02/17 18:29) Ot Request For Service (10/02/17 18:29) Heparin Inj (Heparin Inj) (10/02/17 21:00) Scd Bilateral/Knee High CHRISTY.BID (10/02/17 18:29) Naloxone Inj (Narcan Inj) (10/02/17 18:30) Docusate Sodium-Senna (Olivia-Colace) (10/02/17 21:00) Magnesium Hydroxide Liq (Milk Of Magnesi (10/02/17 18:30) Sennosides (Senokot) (10/02/17 18:30) Bisacodyl Supp (Dulcolax Supp) (10/02/17 18:30) Inpatient Certification (10/02/17 ) Doxazosin (Cardura) (10/03/17 09:00) Tamsulosin (Flomax) (10/02/17 21:00) Valacyclovir (Valtrex) (10/02/17 21:00) Free T3 (10/02/17 18:32) Free Thyroxine (T4) (10/02/17 18:32) Ct Thorax/ Chest W Iv Contrast (10/02/17 ) Admit Order (Ed Use Only) (10/02/17 18:39) Labs Laboratory Tests Test 10/02/17 17:00 10/02/17 17:30 White Blood Count 12.4 TH/MM3 Red Blood Count 5.39 MIL/MM3 Hemoglobin 16.1 GM/DL Hematocrit 49.3 % Mean Corpuscular Volume 91.5 FL Mean Corpuscular Hemoglobin 29.9 PG Mean Corpuscular Hemoglobin Concent 32.7 % Red Cell Distribution Width 15.5 % Platelet Count 304 TH/MM3 Mean Platelet Volume 8.3 FL Neutrophils (%) (Auto) 76.2 % Lymphocytes (%) (Auto) 16.0 % Monocytes (%) (Auto) 3.4 % Eosinophils (%) (Auto) 2.7 % Basophils (%) (Auto) 1.7 % Neutrophils # (Auto) 9.5 TH/MM3 Lymphocytes # (Auto) 2.0 TH/MM3 Monocytes # (Auto) 0.4 TH/MM3 Eosinophils # (Auto) 0.3 TH/MM3 Basophils # (Auto) 0.2 TH/MM3 CBC Comment DIFF FINAL Differential Comment Prothrombin Time 11.3 SEC Prothromb Time International Ratio 1.1 RATIO Activated Partial Thromboplast Time 25.9 SEC Blood Urea Nitrogen 25 MG/DL Creatinine 1.20 MG/DL Random Glucose 107 MG/DL Total Protein 8.8 GM/DL Albumin 3.5 GM/DL Calcium Level 9.3 MG/DL Alkaline Phosphatase 115 U/L Aspartate Amino Transf (AST/SGOT) 29 U/L Alanine Aminotransferase (ALT/SGPT) 24 U/L Total Bilirubin 1.1 MG/DL Sodium Level 132 MEQ/L Potassium Level 4.7 MEQ/L Chloride Level 100 MEQ/L Carbon Dioxide Level 20.4 MEQ/L Anion Gap 12 MEQ/L Estimat Glomerular Filtration Rate 58 ML/MIN Total Creatine Kinase 171 U/L Creatine Kinase MB 3.7 NG/ML Troponin I LESS THAN 0.02 NG/ML B-Type Natriuretic Peptide 77 PG/ML Lipase 1220 U/L Thyroid Stimulating Hormone 3rd Gen 7.510 uIU/ML Free Thyroxine 1.26 NG/DL Free Triiodothyronine (T3) pg/dL 2.06 PG/ML MDM Medical Decision Making Medical Screen Exam Complete: Yes Emergency Medical Condition: Yes Medical Record Reviewed: Yes Interpretation(s) EKG shows atrial fibrillation with mild rapid ventricular response in the low 100s. No evidence of LVH, no evidence of any STEMI pattern either. Pulse ox: Excellent Pleth wave, pulse ox reads 94-95% on room air which is within normal limits. Differential Diagnosis Intracranial hemorrhage versus skull fracture versus pneumonia versus UTI versus dehydration versus electrolyte abnormalities versus renal failure versus rhabdo Narrative Course Patient's CBC shows mild leukocytosis of 12.4, no anemia, normal platelet count. And no major left shift. Coagulation profile is within normal limits Complete metabolic profile shows a sodium of 132, carbon dioxide of 20.4, BUN of 25, creatinine 1.2, GFR of 58 this is consistent with prerenal azotemia. The patient's troponin is negative. Total CPK is only 171 not consistent with rhabdomyolysis. Patient's lipase is 1220 which is consistent with pancreatitis however the patient is not clinically presenting as having any type of abdominal pain or tenderness thus this makes it questionable for possible pancreatic CA Diagnosis Primary Impression: elevated lipase r/o malignancy Additional Impression: dehydration Admitting Information Admitting Physician Requests: Admit Alexei Tolbert MD Oct 02, 2017 16:59
[2017-10-02 17:13] LABS: AUTOMATED NEUTROPHIL # 9.5 TH/MM3 (1.8-7.7); BASOPHIL # 0.2 TH/MM3 (0-0.2); BASOPHIL % 1.7 % (0.0-2.0); EOSINOPHIL # 0.3 TH/MM3 (0-0.4); EOSINOPHIL % 2.7 % (0.0-4.0); HEMATOCRIT 49.3 % (39.0-51.0); HEMOGLOBIN 16.1 GM/DL (13.0-17.0); MEAN CELL VOLUME 91.5 FL (80.0-100.0); MEAN CORPUSCULAR HEMOGLOBIN 29.9 PG (27.0-34.0); MEAN CORPUSCULAR HGB CONC 32.7 % (32.0-36.0); MEAN PLATELET VOLUME 8.3 FL (7.0-11.0); MONO % 3.4 % (0.0-8.0); MONOCYTE # 0.4 TH/MM3 (0-0.9); NEUT % 76.2 % (16.0-70.0); PLATELET COUNT 304 TH/MM3 (150-450); RED BLOOD COUNT 5.39 MIL/MM3 (4.50-5.90); RED CELL DISTRIBUTION WIDTH 15.5 % (11.6-17.2); WHITE BLOOD COUNT 12.4 TH/MM3 (4.0-11.0)
[2017-10-02 17:22] LABS: CHLORIDE 100 MEQ/L (98-107); SODIUM (NA) 132 MEQ/L (136-145)
[2017-10-02 17:25] LABS: INTERNATIONAL NORMALIZED RATIO 1.1 RATIO; PROTHROMBIN TIME - PATIENT 11.3 SEC (9.8-11.6)
[2017-10-02] MEDS ORDERED: HYDR-3516 PO (17:25)
[2017-10-02] MEDS ORDERED: TAMS0.4C4 (17:25)
[2017-10-02] MEDS ORDERED: METO50TA PO (17:25)
[2017-10-02] MEDS ORDERED: CEPH500C PO (17:25)
[2017-10-02] MEDS ORDERED: DOXA1TAB36 PO (17:25)
[2017-10-02] MEDS ORDERED: VALA1TAB PO (17:25)
[2017-10-02] MEDS ORDERED: SULF1TAB23 PO (17:25)
[2017-10-02 17:26] LABS: ALBUMIN 3.5 GM/DL (3.4-5.0); BICARBONATE 20.4 MEQ/L (21.0-32.0); CALCIUM 9.3 MG/DL (8.5-10.1)
[2017-10-02 17:27] LABS: BLOOD UREA NITROGEN 25 MG/DL (7-18); GLUCOSE,RANDOM 107 MG/DL (74-106)
[2017-10-02 17:29] LABS: ALT (GPT) 24 U/L (12-78); AST (GOT) 29 U/L (15-37)
[2017-10-02 17:30] LABS: GLOMERULAR FILTRATION RATE 58 ML/MIN (>89)
[2017-10-02 17:31] LABS: TOTAL BILIRUBIN ADULT 1.1 MG/DL (0.2-1.0); TOTAL PROTEIN 8.8 GM/DL (6.4-8.2)
[2017-10-02 17:32] LABS: ALKALINE PHOSPHATASE 115 U/L (45-117)
[2017-10-02 17:35] LABS: TROPONIN I LESS THAN 0.02 NG/ML (0.02-0.05)
--- NOTE | 2017-10-02 17:41 | RADRPT ---
EXAM DATE/TIME: 10/02/2017 17:30 [facility] COMPARISON: No previous studies available for comparison. INDICATIONS : Fell four days ago and found on floor today. RADIATION DOSE: 57.76 CTDIvol (mGy) MEDICAL HISTORY : Atrial fibrillation. SURGICAL HISTORY : Orthopedic surgery. ENCOUNTER: Initial ACUITY: 4 - 6 days PAIN SCALE: 5/10 LOCATION: cranial TECHNIQUE: Multiple contiguous axial images were obtained of the head. Using automated exposure control and adj ustment of the mA and/or kV according to patient size, radiation dose was kept as low as reasonably a chievable to obtain optimal diagnostic quality images. DICOM format image data is available electro nically for review and comparison. FINDINGS: CEREBRUM: The ventricles are normal for age. No evidence of midline shift, mass lesion, hemorrhage or acute in farction. No extra-axial fluid collections are seen. POSTERIOR FOSSA: The cerebellum and brainstem are intact. The 4th ventricle is midline. The cerebellopontine angle i s unremarkable. EXTRACRANIAL: The visualized portion of the orbits is intact. SKULL: The calvaria is intact. No evidence of skull fracture. CONCLUSION: No acute intracranial findings. Sudhakar Nieto MD on October 02, 2017 at 17:38 Board Certified Radiologist. This report was verified electronically.
--- NOTE | 2017-10-02 17:42 | RADRPT ---
EXAM DATE/TIME: 10/02/2017 17:11 [facility] COMPARISON: CHEST SINGLE AP, July 07, 2017, 12:40. INDICATIONS : Trauma, fall. MEDICAL HISTORY : None. SURGICAL HISTORY : None. ENCOUNTER: Initial ACUITY: 4 - 6 days PAIN SCORE: 0/10 LOCATION: Bilateral chest FINDINGS: There are vague nodular densities overlying the lungs bilaterally. The right hilum is prominent. Furt her evaluation with CT chest recommended. CONCLUSION: Abnormal chest. Recommend CT for further evaluation Sudhakar Nieto MD on October 02, 2017 at 17:40 Board Certified Radiologist. This report was verified electronically.
--- NOTE | 2017-10-02 17:46 | RADRPT ---
EXAM DATE/TIME: 10/02/2017 17:11 [facility] COMPARISON: No previous studies available for comparison. INDICATIONS : Trauma, fall. MEDICAL HISTORY : None. SURGICAL HISTORY : None. ENCOUNTER: Initial ACUITY: 4 - 6 days PAIN SCORE: 0/10 LOCATION: Bilateral pelvis FINDINGS: The hips are grossly symmetric accounting for slight rotational. No definite fracture or dislocation identified. I see no displaced pelvic fracture. CONCLUSION: No definite acute bony injury Sudhakar Nieto MD on October 02, 2017 at 17:45 Board Certified Radiologist. This report was verified electronically.
[2017-10-02] MEDS ORDERED: MAGNESIUM HYDROXIDE SUSP 30 ML CUP PO PRN (18:30)
[2017-10-02] MEDS ORDERED: NALOXONE HCL 0.4 MG/ML AMP IV PUSH PRN (18:30)
[2017-10-02] MEDS ORDERED: BISACODYL 10 MG SUPP RECTAL PRN (18:30)
[2017-10-02] MEDS ORDERED: ACETAMINOPHEN 325 MG TAB PO PRN (18:30)
[2017-10-02] MEDS ORDERED: SODIUM CHLORIDE 0.9% FLUSH 10 ML FLUSH IV FLUSH PRN (18:30)
[2017-10-02] MEDS ORDERED: SENNOSIDES 8.6 MG TAB PO PRN (18:30)
[2017-10-02] MEDS ORDERED: IOHEXOL 350 MG/ML 10 ML VIAL (for RAD DIAG) IVCONTRAST ONE (19:10)
--- NOTE | 2017-10-02 19:33 | RADRPT ---
EXAM DATE/TIME: 10/02/2017 18:45 [facility] COMPARISON: No previous studies available for comparison. INDICATIONS : Evaluate for mass. IV CONTRAST: 70 cc Omnipaque 350 (iohexol) IV ; Cumulative dose for multiple exams. RADIATION DOSE: 12.61 CTDIvol (mGy) ; Combined studies - Thorax/Abdomen/Pelvis MEDICAL HISTORY : Atrial fibrillation. SURGICAL HISTORY : Orthopedic surgery. ENCOUNTER: Initial ACUITY: 4 - 6 days PAIN SCALE: 5/10 LOCATION: chest TECHNIQUE: Volumetric scanning of the chest was performed. Using automated exposure control and adjustment of t he mA and/or kV according to patient size, radiation dose was kept as low as reasonably achievable to obtain optimal diagnostic quality images. DICOM format image data is available electronically for review and comparison. Follow-up recommendations for detected pulmonary nodules are based at a minimum on nodule size and pa tient risk factors according to Fleischner Society Guidelines. FINDINGS: There is a right hilar mass measuring up to 5.6 cm in diameter, possibly conglomerate adenopathy. The re are nodules in both lungs all measuring less than a centimeter in diameter. Pleural-based nodule i s present on the left side as well. There is also mediastinal adenopathy with a 1.9 cm lymph node at the AP window. Findings are most characteristic of malignancy. No pleural or pericardial effusion. See abdomen CT for findings below the diaphragm. CONCLUSION: 1. 5.6 cm right hilar mass most characteristic of malignancy. 1.9 cm AP window lymph node. Multiple n odules in both lungs all of which have short axis diameter is less than a centimeter. Findings are mo st characteristic of malignancy with metastatic jay disease and probable metastatic parenchymal ryne g disease. Aston Hare MD on October 02, 2017 at 19:27 Board Certified Radiologist. This report was verified electronically.
--- NOTE | 2017-10-02 19:38 | RADRPT ---
EXAM DATE/TIME: 10/02/2017 18:45 [facility] COMPARISON: No previous studies available for comparison. INDICATIONS : Evaluate pancreas. IV CONTRAST: 70 cc Omnipaque 350 (iohexol) IV ; Cumulative dose for multiple exams. ORAL CONTRAST: No oral contrast ingested. RADIATION DOSE: 12.61 CTDIvol (mGy) ; Combined studies - Thorax/Abdomen/Pelvis MEDICAL HISTORY : Atrial fibrillation. SURGICAL HISTORY : Orthopedic surgery. ENCOUNTER: Initial ACUITY: 4 - 6 days PAIN SCALE: 0/10 LOCATION: pelvis abdomen TECHNIQUE: Volumetric scanning of the abdomen and pelvis was performed. Using automated exposure control and ad justment of the mA and/or kV according to patient size, radiation dose was kept as low as reasonably achievable to obtain optimal diagnostic quality images. DICOM format image data is available electro nically for review and comparison. FINDINGS: There is a 2.4 cm probable cyst left lobe liver. There is a 2.2 cm lesion in the posterior right lobe liver which is suspicious for metastatic disease. Bilateral renal cysts present, larger on the right side measuring up to 5.2 cm in diameter. Bilateral nonobstructing renal calculi measuring up to abou t 12 mm lower pole left kidney and 5 mm upper pole right kidney. Atherosclerotic aorta with mild ectasia. No pelvic mass or adenopathy. Prostatic enlargement. There is a mildly sclerotic 3 cm lesion right il iac bone, indeterminate for metastatic disease. Other smaller sclerotic lesions also present. CONCLUSION: 1. 2.3 cm lesion posterior right lobe liver suspicious for metastatic disease. 2. Mildly sclerotic bone lesions in the pelvis as above measuring up to 3.1 cm on the right. Cannot e xclude bony metastatic disease. 3. Nonobstructing renal calculi. Bilateral renal cysts and left hepatic cyst. Aston Hare MD on October 02, 2017 at 19:32 Board Certified Radiologist. This report was verified electronically.
[2017-10-02] MEDS: SODIUM CHLOR 0.45% 1000 ML INJ 1,000 ML IV SCH (20:48)
[2017-10-02] MEDS: SODIUM CHLORIDE 0.9% FLUSH 10 ML FLUSH IV FLUSH SCH (21:00)
[2017-10-02 21:02] LABS: GLUCOSE,URINE NEG (NEG); KETONE, URINE NEG (NEG); NITRITE,URINE NEG (NEG); PH, URINE 5.5 (5.0-8.5); URINE LEUKOCYTE ESTERASE NEG (NEG)
[2017-10-02 21:13] LABS: BILIRUBIN, URINE NEG (NEG); BLOOD, URINE TRACE (NEG)
[2017-10-02 21:23] LABS: URINE COLOR AMBER (YELLW/STRAW)
[2017-10-02 21:30] LABS: SQUAMOUS EPITHELIAL CELL URINE 0-5 /hpf (0-5)
[2017-10-02] MEDS: DOCUSATE SODIUM 50 MG/SENNA 8.6 MG TAB PO SCH (22:00)
[2017-10-02] MEDS: valACYclovir HCL 500 MG TAB PO SCH (22:00)
[2017-10-02] MEDS: HEPARIN SODIUM - SQ 10,000 UNITS/ML VIAL SQ SCH (22:00)
[2017-10-02] MEDS: TAMSULOSIN HCL 0.4 MG CAP PO SCH (22:00)
[2017-10-02 22:45] LABS: FREE T3 2.06 PG/ML (2.18-3.98); FREE T4 1.26 NG/DL (0.76-1.46)
[2017-10-03] VITALS (7 sets, daily range): BP systolic 94–118; BP diastolic 52–75; PULSE 75–107; RESP 18; TEMP 95.9–96.8; O2SAT 93–96
[2017-10-03 07:08] LABS: AUTOMATED NEUTROPHIL # 6.2 TH/MM3 (1.8-7.7); BASOPHIL # 0.1 TH/MM3 (0-0.2); BASOPHIL % 0.8 % (0.0-2.0); EOSINOPHIL # 0.6 TH/MM3 (0-0.4); EOSINOPHIL % 6.6 % (0.0-4.0); HEMATOCRIT 44.7 % (39.0-51.0); HEMOGLOBIN 14.4 GM/DL (13.0-17.0); LYMPH % 13.1 % (9.0-44.0); LYMPHOCYTE # 1.1 TH/MM3 (1.0-4.8); MEAN CELL VOLUME 92.5 FL (80.0-100.0); MEAN CORPUSCULAR HEMOGLOBIN 29.7 PG (27.0-34.0); MEAN CORPUSCULAR HGB CONC 32.2 % (32.0-36.0); MEAN PLATELET VOLUME 8.8 FL (7.0-11.0); MONO % 7.7 % (0.0-8.0); MONOCYTE # 0.7 TH/MM3 (0-0.9); NEUT % 71.8 % (16.0-70.0); PLATELET COUNT 267 TH/MM3 (150-450); RED BLOOD COUNT 4.84 MIL/MM3 (4.50-5.90); RED CELL DISTRIBUTION WIDTH 15.4 % (11.6-17.2); WHITE BLOOD COUNT 8.7 TH/MM3 (4.0-11.0)
[2017-10-03 07:14] LABS: CHLORIDE 100 MEQ/L (98-107); SODIUM (NA) 133 MEQ/L (136-145)
[2017-10-03 07:17] LABS: BICARBONATE 24.7 MEQ/L (21.0-32.0); BLOOD UREA NITROGEN 23 MG/DL (7-18); CALCIUM 8.7 MG/DL (8.5-10.1); GLUCOSE,RANDOM 88 MG/DL (74-106)
[2017-10-03 07:20] LABS: ALT (GPT) 29 U/L (12-78); AST (GOT) 27 U/L (15-37); GLOMERULAR FILTRATION RATE 81 ML/MIN (>89)
[2017-10-03 07:22] LABS: TOTAL BILIRUBIN ADULT 0.7 MG/DL (0.2-1.0); TOTAL PROTEIN 7.3 GM/DL (6.4-8.2)
[2017-10-03 07:23] LABS: ALKALINE PHOSPHATASE 97 U/L (45-117)
[2017-10-03] MEDS: DOXAZOSIN MESYLATE 1 MG TAB PO SCH (09:21)
[2017-10-03] MEDS: valACYclovir HCL 500 MG TAB PO SCH ×2 (09:21→21:06)
[2017-10-03] MEDS: DOCUSATE SODIUM 50 MG/SENNA 8.6 MG TAB PO SCH ×2 (09:21→21:06)
[2017-10-03] MEDS: HEPARIN SODIUM - SQ 10,000 UNITS/ML VIAL SQ SCH ×2 (09:22→21:07)
[2017-10-03] MEDS: SODIUM CHLORIDE 0.9% FLUSH 10 ML FLUSH IV FLUSH SCH ×2 (09:22→21:00)
[2017-10-03] MEDS: SODIUM CHLOR 0.45% 1000 ML INJ 1,000 ML IV SCH (09:24)
--- NOTE | 2017-10-03 10:49 | HHI.HP ---
[facility] Unknown Admission Diagnosis DEHYDRATION, POSSIBLE LUNG MASS, R/O PANCREATIC OBSTRUCTION Diagnoses: Travel History International Travel<30 Days: No Contact w/Intl Traveler <30 Da: No Traveled to Known Affected Are: No History of Present Illness fell on monday and daughter found on him on the floor of bedroom 4 days later was trying to get out of bed and slipped out of bed on his buttocks no head trauma no syncope just simply weak per him usually uses a walker and wheel chair, lives by himself , usually cooks his own breakfast denies any symptoms but c/o just arthritis pain in bilateral arms and hands daughter was able to put him back on wheelchair, and wheeled him thorugh ramp in house and drove him here 5 days hx of shingles and stated he has been on meds for it for 5 days Review of Systems Except as stated in HPI: all other systems reviewed are Neg Past Family Social History Past Medical History denies htn/dm/cad/chf/afib/lung issues/liver problems, kidney problems, stroke. seizures, thyroid problems, no cancers per EMR: afib- takes heart medicine CHF- EF 35-40% by echo in 07/2017 hx of penumonia in 07/23 Past Surgical History right knee replacement Allergies: Coded Allergies: No Known Allergies (Unverified , 10/02/17) Family History none that he knows of Social History quit smoking 20yrs ago quit 20yrs ago, used to drink heavily no drugs lives alone , has daughter, Physical Exam Vital Signs Vital Signs Date Time Temp Pulse Resp B/P (MAP) Pulse Ox O2 Delivery O2 Flow Rate FiO2 10/03/17 08:00 95.9 97 18 107/67 (80) 96 10/03/17 04:00 96.1 103 18 100/67 (78) 93 10/02/17 22:15 94 21 10/02/17 21:41 96.5 102 18 109/71 (84) 94 10/02/17 21:05 98 16 114/81 (92) 97 10/02/17 20:00 79 16 93/74 (80) 100 Room Air 10/02/17 19:00 99 16 94/71 (79) 98 Room Air 10/02/17 19:00 99 16 98 Room Air 10/02/17 17:07 16 95 Room Air 10/02/17 16:46 16 96 Room Air 10/02/17 16:25 97.5 18 149/59 (89) Physical Exam GENERAL: This is a well-nourished, well-developed patient, in no apparent distress. SKIN: No rashes, ecchymoses or lesions. Cool and dry. HEAD: Atraumatic. Normocephalic. No temporal or scalp tenderness. EYES: Pupils equal round and reactive. Extraocular motions intact. No scleral icterus. No injection or drainage. ENT: Nose without bleeding, purulent drainage or septal hematoma. Throat without erythema, tonsillar hypertrophy or exudate. Uvula midline. Airway patent. NECK: Trachea midline. No JVD or lymphadenopathy. Supple, nontender, no meningeal signs. CARDIOVASCULAR: Regular rate and rhythm without murmurs, gallops, or rubs. RESPIRATORY: Clear to auscultation. Breath sounds equal bilaterally. No wheezes , rales, or rhonchi. GASTROINTESTINAL: Abdomen soft, non-tender, nondistended. No hepato-splenomegaly , or palpable masses. No guarding. MUSCULOSKELETAL: Extremities without clubbing, cyanosis, or edema. No joint tenderness, effusion, or edema noted. No calf tenderness. Negative Homans sign bilaterally. NEUROLOGICAL: Awake and alert. Cranial nerves II through XII intact. Motor and sensory grossly within normal limits. Five out of 5 muscle strength in all muscle groups. Normal speech. Laboratory Laboratory Tests Test 10/02/17 17:00 10/02/17 17:30 10/02/17 20:20 10/03/17 06:49 White Blood Count 12.4 8.7 Red Blood Count 5.39 4.84 Hemoglobin 16.1 14.4 Hematocrit 49.3 44.7 Mean Corpuscular Volume 91.5 92.5 Mean Corpuscular Hemoglobin 29.9 29.7 Mean Corpuscular Hemoglobin Concent 32.7 32.2 Red Cell Distribution Width 15.5 15.4 Platelet Count 304 267 Mean Platelet Volume 8.3 8.8 Neutrophils (%) (Auto) 76.2 71.8 Lymphocytes (%) (Auto) 16.0 13.1 Monocytes (%) (Auto) 3.4 7.7 Eosinophils (%) (Auto) 2.7 6.6 Basophils (%) (Auto) 1.7 0.8 Neutrophils # (Auto) 9.5 6.2 Lymphocytes # (Auto) 2.0 1.1 Monocytes # (Auto) 0.4 0.7 Eosinophils # (Auto) 0.3 0.6 Basophils # (Auto) 0.2 0.1 CBC Comment DIFF FINAL DIFF FINAL Differential Comment Prothrombin Time 11.3 Prothromb Time International Ratio 1.1 Activated Partial Thromboplast Time 25.9 Blood Urea Nitrogen 25 23 Creatinine 1.20 0.90 Random Glucose 107 88 Total Protein 8.8 7.3 Albumin 3.5 3.0 Calcium Level 9.3 8.7 Alkaline Phosphatase 115 97 Aspartate Amino Transf (AST/SGOT) 29 27 Alanine Aminotransferase (ALT/SGPT) 24 29 Total Bilirubin 1.1 0.7 Sodium Level 132 133 Potassium Level 4.7 4.2 Chloride Level 100 100 Carbon Dioxide Level 20.4 24.7 Anion Gap 12 8 Estimat Glomerular Filtration Rate 58 81 Total Creatine Kinase 171 Creatine Kinase MB 3.7 Troponin I LESS THAN 0.02 B-Type Natriuretic Peptide 77 Lipase 1220 Thyroid Stimulating Hormone 3rd Gen 7.510 Free Thyroxine 1.26 Free Triiodothyronine (T3) pg/dL 2.06 Urine Color OLY Urine Turbidity CLEAR Urine pH 5.5 Urine Specific [place] 1.022 Urine Protein TRACE Urine Glucose (UA) NEG Urine Ketones NEG Urine Occult Blood TRACE Urine Nitrite NEG Urine Bilirubin NEG Urine Leukocyte Esterase NEG Urine Squamous Epithelial Cells 0-5 Microscopic Urinalysis Comment CULT NOT INDICATED Result Diagram: 10/03/17 0649 10/03/1749 Caprini VTE Risk Assessment Caprini Risk Assessment Model Point Value = 1 Point Value = 2 Point Value = 3 Point Value = 5 Age 41-60 Minor surgery BMI > 25 kg/m2 Swollen legs Varicose veins or History of unexplained or recurrent spontaneous Oral contraceptives or hormone replacement Sepsis (< 1 month) Serious lung disease, including pneumonia (< 1 month) Abnormal pulmonary function Acute myocardial infarction Congestive heart failure (< 1 month) History of inflammatory bowel disease Medical patient at bed rest Age 61-74 Arthroscopic surgery Major open surgery (> 45 min) Laparoscopic surgery (> 45 min) Malignancy Confined to bed (> 72 hours) Immobilizing plaster cast Central venous access Age >= 75 History of VTE Family history of VTE Factor V Leiden Prothrombin [id number] Lupus anticoagulant Anticardiolipin antibodies Elevated serum homocysteine Heparin-induced thrombocytopenia Other congenital or acquired thrombophilia Stroke (< 1 month) Elective arthroplasty Hip, pelvis, or leg fracture Acute spinal cord injury (< 1 month) Prophylaxis Regimen Total Risk Factor Score Risk Level Prophylaxis Regimen 0-1 Low Early ambulation 2 Moderate Order ONE of the following: *Sequential Compression Device (SCD) *Heparin 5000 units SQ BID 3-4 Higher Order ONE of the following medications: *Heparin 5000 units SQ TID *Enoxaparin/Lovenox 40 mg SQ daily (WT < 150 kg, CrCl > 30 mL/min) *Enoxaparin/Lovenox 30 mg SQ daily (WT < 150 kg, CrCl > 10-29 mL/min) *Enoxaparin/Lovenox 30 mg SQ BID (WT < 150 kg, CrCl > 30 mL/min) AND/OR *Sequential Compression Device (SCD) 5 or more Highest Order ONE of the following medications: *Heparin 5000 units SQ TID (Preferred with Epidurals) *Enoxaparin/Lovenox 40 mg SQ daily (WT < 150 kg, CrCl > 30 mL/min) *Enoxaparin/Lovenox 30 mg SQ daily (WT < 150 kg, CrCl > 10-29 mL/min) *Enoxaparin/Lovenox 30 mg SQ BID (WT < 150 kg, CrCl > 30 mL/min) AND *Sequential Compression Device (SCD) Physician Certification Order for Inpatient Services The services are ordered in accordance with Medicare regulations or non- Medicare payer requirements, as applicable. In the case of services not specified as inpatient-only, they are appropriately provided as inpatient services in accordance with the 2-midnight benchmark. days is the estimated time the patient will need to remain in the hospital, assuming treatment plan goals are met and no additional complications. Kathleen Hammond MD Oct 03, 2017 10:49
[2017-10-03] MEDS: SODIUM CHLOR 0.9% 1000 ML INJ 1,000 ML IV SCH ×2 (11:00→21:07)
--- NOTE | 2017-10-03 14:35 | PD.CONS ---
Consult Service Palliative Care . Consult Requested By Dr. Hammond . Primary Care Physician Unknown . Reason for Consultation a. To assist with evaluation and management of symptoms including: nausea/ vomiting, debility b. To assist medical decision maker(s) with: better understanding of current medical conditions; weighing benefits/burdens of medical treatment options; making medical treatment decisions. . HPI History of Present Illness Mr. Calix presented to [facility] ED on 10/02/2017 for evaluation status post a fall. Apparently the patient fell out of the bed a few days prior and was too weak to get back up. His family found him approximately 4 days later and brought him to the emergency department for evaluation. Patient had no complaints. Of note, the patient was hospitalized for 3 days in July, for treatment of sepsis, pneumonia and new onset atrial fibrillation. Patient had an echocardiogram on 07/08/17 with EF of 35-40%. He is also being treated for shingles and has been on medications for 5 days. Additional diagnostic data: * Vital signs: Pulse 99, respirations 18, blood pressure 149/59, oxygen saturation 96% on room air and oral temperature 97.5 * WBC: 12.4, hemoglobin 16.1, hematocrit 49.3, platelets 304, neutrophils 76.2% * Sodium: 132, potassium 4.7, chloride 100, carbon dioxide 20.4, glucose 107, calcium 9.3 * BUN: 25, creatinine 1.20, GFR 58 * Total bilirubin: 1.1, AST 29, ALT 24, alkaline phosphatase 115 * Total creatine kinase: 171 * CK-MB: 3.7 * Troponin: <0.02 * BNP: 77 * Total protein: 8.8, albumin 3.5 * Lipase: 1220 * PT: 11.3, INR 1.1, APTT 25.9 * UA-normal * Pelvis x-ray revealed no acute bony injuries. * CT head with no acute intracranial findings. * CT abdomen/pelvis showing 2.3 cm lesion posterior right lobe liver suspicious for metastatic disease. Mildly sclerotic bone lesions in the pelvis as above measuring up to 3.1 cm on the right. Cannot exclude bony metastatic disease. Nonobstructing renal calculi. Bilateral renal cyst and left hepatic cyst. * Abnormal chest x-ray. CT chest showed a 5.6 cm right hilar mass most characteristic of malignancy. 1.9 cm AP window lymph node. Multiple nodules in both lungs all of which have short axis diameter, less than a centimeter. Findings are most characteristic of malignancy with metastatic jay disease and probable metastatic parenchymal lung disease. Patient was admitted for further evaluation and medical management of suspected metastatic lung cancer. Oncology consult is pending. Palliative Care was consulted to assist with symptom management and to discuss with the patient/ family the benefits and burdens of his current illnesses and the options regarding future care. . Function/Cognitive Trajectory Patient lives alone but his daughter and grandson would takes turns assisting with his care and/or staying with him. He usually ambulates with a walker or uses a wheelchair. Patient hospitalized for 3 days in July, for treatment of sepsis, pneumonia and new onset atrial fibrillation and now again on 10/02/17 with suspected metastatic lung cancer. Patient's daughter, Radha, describes a decline over the past 1-2 years stating that she feels the the patient has "given up." More recently the patient had progressively increased weakness and decreased appetite. He recently fell in is home and was too weak to get up; he remained there for approximately 4 days until his daughter checked on him. . Review of Systems ROS Limitations: Poor Historian (Patient is poor historian. ROS obtained through review of notes and patient/family report.) Constitutional: COMPLAINS OF: Weight loss (BMI 17.4), Change in appetite ( decrease appetite), Generalized weakness Gastrointestinal: COMPLAINS OF: Abdominal pain, Nausea, Vomiting, DENIES: Black stools, Bloody stools Neurologic: COMPLAINS OF: Abnormal gait, Speech Problems, Poor Balance Psychiatric: COMPLAINS OF: Anxiety Past Family Social History Coded Allergies: No Known Allergies (Unverified , 10/02/17) Past Medical History Atrial fibrillation Arthritis [place] CHF with EF 35-40% by echo in 07/2017 [place] Recently hospitalized in 07/2017 with pneumonia BPH . Past Surgical History Knee replacement 2 Reported Medications Metoprolol Tartrate 50 Mg Tab 50 Mg PO BID Tamsulosin (Tamsulosin HCl) 0.4 Mg Cap 0.4 Mg HS Doxazosin (Doxazosin Mesylate) 1 Mg Tab 1 Mg PO DAILY Hydrocodone-Acetaminophen 5-325 mg Tab 1 Tab PO Q8H PRN Sulfamethoxazole-Trimethoprim 800-160 Mg Tab 1 Tab PO BID Cephalexin 500 Mg Cap 500 Mg PO Q8H Valacyclovir (Valacyclovir HCl) 1,000 Mg Tab 1,000 Mg PO BID . Current Medications Medications (Trade) Dose Ordered Sig/Jesus Route Start Time Stop Time Status Last Admin (NS Flush) 2 ml UNSCH PRN IV FLUSH 10/02/17 18:30 (NS Flush) 2 ml BID IV FLUSH 10/02/17 21:00 10/03/17 09:22 (Tylenol) 650 mg Q4H PRN PO 10/02/17 18:30 (Zofran Inj) 4 mg Q6H PRN IVP 10/02/17 18:30 (Heparin Inj) 5,000 units Q12H SQ 10/02/17 21:00 10/03/17 09:22 (Narcan Inj) 0.4 mg UNSCH PRN IV PUSH 10/02/17 18:30 (Olivia-Colace) 1 tab BID PO 10/02/17 21:00 10/03/17 09:21 (Milk Of Magnesia Liq) 30 ml Q12H PRN PO 10/02/17 18:30 (Senokot) 17.2 mg Q12H PRN PO 10/02/17 18:30 (Dulcolax Supp) 10 mg DAILY PRN RECTAL 10/02/17 18:30 (Cardura) 1 mg DAILY PO 10/03/17 09:00 10/03/17 09:21 (Flomax) 0.4 mg HS PO 10/02/17 21:00 10/02/17 22:00 (Valtrex) 1,000 mg BID PO 10/02/17 21:00 10/03/17 09:21 Sodium Chloride 1,000 ml @ 84 mls/hr [id number] IV 10/03/17 11:00 10/03/17 11:00 . Family History Pending further conversations with patient/family. . Substance Use Tobacco: Previous heavy smoker; quit in 2012 Alcohol: History of alcohol abuse Prescription med abuse: None known Illicits: None known . Psychosocial History Patient is originally from [place]. He met his while he was in the [employer]. 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 He has 2 adult children, 1 son and 1 daughter. His daughter, Radha, lives locally. Patient is reportedly estranged from his son, Ronal, who lives in [place]. Patient is supported by his daughter and grandson. . Spiritual/Cultural Factors Patient was raised as [employer] [facility]. He currently does not have a mu-ism home. . Date completed: . Health Care Surrogate(s): . Documented care wishes: Patient's daughter, Radha, states the patient has completed written advance directives. She will locate these documents and bring copies tomorrow 2017 when she meets with palliative care. . Today's verbally stated goals: Pending further conversation with patient when family is present. . Family/friends goals: Aggressive goals pending further conversation. . Ethical and Legal Issues No known ethical or legal issues. . Physical Exam Vital Signs Date Time Temp Pulse Resp B/P (MAP) Pulse Ox O2 Delivery O2 Flow Rate FiO2 10/03/17 12:00 96.0 107 18 94/52 (66) 94 10/03/17 08:22 92 10/03/17 08:00 95.9 97 18 107/67 (80) 96 10/03/17 04:00 96.1 103 18 100/67 (78) 93 10/02/17 22:15 94 21 10/02/17 21:41 96.5 102 18 109/71 (84) 94 10/02/17 21:05 98 16 114/81 (92) 97 10/02/17 20:00 79 16 93/74 (80) 100 Room Air 10/02/17 19:00 99 16 94/71 (79) 98 Room Air 10/02/17 19:00 99 16 98 Room Air 10/02/17 17:07 16 95 Room Air 10/02/17 16:46 16 96 Room Air 10/02/17 16:25 97.5 18 149/59 (89) . 10/03/17 10/04/17 18:59 06:59 Intake Total 772 ml Balance 772 ml Intake Oral 660 ml IV Total 112 ml # Voids 1 . Exam CONSTITUTIONAL/GENERAL: Frail, elderly male patient in no acute distress TUBES/LINES/DRAINS: PIV SKIN: Ecchymoses on upper extremities. Skin is loose with poor skin turgor. HEAD: Atraumatic. Normocephalic. EYES: Pupils equal and round and reactive. Extraocular motions intact. No scleral icterus. No injection or drainage. Fundi not examined. ENT: Hearing grossly normal. Nose without bleeding or purulent drainage. NECK: Trachea midline. Supple, nontender. No palpable thyroid enlargement or nodularity. CARDIOVASCULAR: Irregularly irregular without murmurs, gallops, or rubs. No JVD. Peripheral pulses symmetric. RESPIRATORY/CHEST: Symmetric, unlabored respirations. Clear to auscultation. Breath sounds equal bilaterally. No wheezes, rales, or rhonchi. GASTROINTESTINAL: Abdomen soft, non-tender, nondistended. No guarding. Bowel sounds present. GENITOURINARY: Without palpable bladder distension. MUSCULOSKELETAL: Extremities without clubbing, cyanosis, or edema. No mottling or clubbing. LYMPHATICS: No palpable cervical or supraclavicular adenopathy. NEUROLOGICAL: Arouses easily to verbal stimuli. Lethargic. Able to answer questions and follow commands. PSYCHIATRIC: No obvious anxiety/depression. No apparent hallucinations or other psychotic thought process. . Diagnostic Tests Laboratory Laboratory Tests Test 10/02/17 17:00 10/02/17 17:30 10/02/17 20:20 10/03/17 06:49 White Blood Count 12.4 TH/MM3 (4.0-11.0) 8.7 TH/MM3 (4.0-11.0) Red Blood Count 5.39 MIL/MM3 (4.50-5.90) 4.84 MIL/MM3 (4.50-5.90) Hemoglobin 16.1 GM/DL (13.0-17.0) 14.4 GM/DL (13.0-17.0) Hematocrit 49.3 % (39.0-51.0) 44.7 % (39.0-51.0) Mean Corpuscular Volume 91.5 FL (80.0-100.0) 92.5 FL (80.0-100.0) Mean Corpuscular Hemoglobin 29.9 PG (27.0-34.0) 29.7 PG (27.0-34.0) Mean Corpuscular Hemoglobin Concent 32.7 % (32.0-36.0) 32.2 % (32.0-36.0) Red Cell Distribution Width 15.5 % (11.6-17.2) 15.4 % (11.6-17.2) Platelet Count 304 TH/MM3 (150-450) 267 TH/MM3 (150-450) Mean Platelet Volume 8.3 FL (7.0-11.0) 8.8 FL (7.0-11.0) Neutrophils (%) (Auto) 76.2 % (16.0-70.0) 71.8 % (16.0-70.0) Lymphocytes (%) (Auto) 16.0 % (9.0-44.0) 13.1 % (9.0-44.0) Monocytes (%) (Auto) 3.4 % (0.0-8.0) 7.7 % (0.0-8.0) Eosinophils (%) (Auto) 2.7 % (0.0-4.0) 6.6 % (0.0-4.0) Basophils (%) (Auto) 1.7 % (0.0-2.0) 0.8 % (0.0-2.0) Neutrophils # (Auto) 9.5 TH/MM3 (1.8-7.7) 6.2 TH/MM3 (1.8-7.7) Lymphocytes # (Auto) 2.0 TH/MM3 (1.0-4.8) 1.1 TH/MM3 (1.0-4.8) Monocytes # (Auto) 0.4 TH/MM3 (0-0.9) 0.7 TH/MM3 (0-0.9) Eosinophils # (Auto) 0.3 TH/MM3 (0-0.4) 0.6 TH/MM3 (0-0.4) Basophils # (Auto) 0.2 TH/MM3 (0-0.2) 0.1 TH/MM3 (0-0.2) CBC Comment DIFF FINAL DIFF FINAL Differential Comment Prothrombin Time 11.3 SEC (9.8-11.6) Prothromb Time International Ratio 1.1 RATIO Activated Partial Thromboplast Time 25.9 SEC (24.3-30.1) Blood Urea Nitrogen 25 MG/DL (7-18) 23 MG/DL (7-18) Creatinine 1.20 MG/DL (0.60-1.30) 0.90 MG/DL (0.60-1.30) Random Glucose 107 MG/DL (74-106) 88 MG/DL (74-106) Total Protein 8.8 GM/DL (6.4-8.2) 7.3 GM/DL (6.4-8.2) Albumin 3.5 GM/DL (3.4-5.0) 3.0 GM/DL (3.4-5.0) Calcium Level 9.3 MG/DL (8.5-10.1) 8.7 MG/DL (8.5-10.1) Alkaline Phosphatase 115 U/L (45-117) 97 U/L (45-117) Aspartate Amino Transf (AST/SGOT) 29 U/L (15-37) 27 U/L (15-37) Alanine Aminotransferase (ALT/SGPT) 24 U/L (12-78) 29 U/L (12-78) Total Bilirubin 1.1 MG/DL (0.2-1.0) 0.7 MG/DL (0.2-1.0) Sodium Level 132 MEQ/L (136-145) 133 MEQ/L (136-145) Potassium Level 4.7 MEQ/L (3.5-5.1) 4.2 MEQ/L (3.5-5.1) Chloride Level 100 MEQ/L (98-107) 100 MEQ/L (98-107) Carbon Dioxide Level 20.4 MEQ/L (21.0-32.0) 24.7 MEQ/L (21.0-32.0) Anion Gap 12 MEQ/L (5-15) 8 MEQ/L (5-15) Estimat Glomerular Filtration Rate 58 ML/MIN (>89) 81 ML/MIN (>89) Total Creatine Kinase 171 U/L (39-308) Creatine Kinase MB 3.7 NG/ML (0.5-3.6) Troponin I LESS THAN 0.02 NG/ML B-Type Natriuretic Peptide 77 PG/ML (0-100) Lipase 1220 U/L (73-393) Thyroid Stimulating Hormone 3rd Gen 7.510 uIU/ML (0.358-3.740) Free Thyroxine 1.26 NG/DL (0.76-1.46) Free Triiodothyronine (T3) pg/dL 2.06 PG/ML (2.18-3.98) Urine Color OLY (YELLW/STRAW) Urine Turbidity CLEAR (CLEAR) Urine pH 5.5 (5.0-8.5) Urine Specific [place] 1.022 (1.002-1.035) Urine Protein TRACE mg/dL (NEG-TRACE) Urine Glucose (UA) NEG mg/dL (NEG) Urine Ketones NEG mg/dL (NEG) Urine Occult Blood TRACE (NEG) Urine Nitrite NEG (NEG) Urine Bilirubin NEG (NEG) Urine Leukocyte Esterase NEG (NEG) Urine Squamous Epithelial Cells 0-5 /hpf (0-5) Microscopic Urinalysis Comment CULT NOT INDICATED . Result Diagram: 10/03/1749 10/03/1749 Imaging Last 72 hours Impressions Abdomen/Pelvis CT 10/02/17 1809 Signed Impressions: Service Date/Time: Monday, October 02, 2017 18:45 - CONCLUSION: 1. 2.3 cm lesion posterior right lobe liver suspicious for metastatic disease. 2. Mildly sclerotic bone lesions in the pelvis as above measuring up to 3.1 cm on the right. Cannot exclude bony metastatic disease. 3. Nonobstructing renal calculi. Bilateral renal cysts and left hepatic cyst. Aston Hare MD Pelvis X-Ray 10/02/171651 Signed Impressions: Service Date/Time: Monday, October 02, 2017 17:11 - CONCLUSION: No definite acute bony injury Sudhakar Nieto MD Head CT 10/02/171651 Signed Impressions: Service Date/Time: Monday, October 02, 2017 17:30 - CONCLUSION: No acute intracranial findings. Sudhakar Nieto MD Chest X-Ray 10/02/171651 Signed Impressions: Service Date/Time: Monday, October 02, 2017 17:11 - CONCLUSION: Abnormal chest. Recommend CT for further evaluation Sudhakar Nieto MD Chest CT 10/02/17 0000 Signed Impressions: Service Date/Time: Monday, October 02, 2017 18:45 - CONCLUSION: 1. 5.6 cm right hilar mass most characteristic of malignancy. 1.9 cm AP window lymph node. Multiple nodules in both lungs all of which have short axis diameter is less than a centimeter. Findings are most characteristic of malignancy with metastatic jay disease and probable metastatic parenchymal lung disease. Aston Hare MD . Procedures Patient/Family Conference Present at Family Conference: Spoke with patient's daughter via telephone. Met and examined patient at bedside. . Family Conference Location: Bedside, Telephone Issues Discussed: * Palliative care role, purpose, approach * Additional medical, psychosocial, and spiritual history * Patients general health, functional status, and cognitive changes in the months leading up to the current hospitalization * Patient/family understanding of the current medical problems * Patient/family understanding of prognosis * Patients goals of care as best understood from advance directives and/or conversations and/or values * Current medical treatment options and benefits/burdens of those options * Likely scenarios comparing ongoing aggressive care with a transition to comfort measures only * Questions answered to the best of my ability * Palliative care contact information provided . Assessment and Plan Disease Oriented Problem List: (1) Atrial fibrillation (2) CHF (congestive heart failure) (3) Shingles outbreak (4) Metastatic lung cancer (metastasis from lung to other site) Comment: Suspected. Oncology consult pending. Symptom Scale: (1) Debility (2) Nausea and vomiting Pertinent Non-Medical Issues Psychosocial: Patient is originally from [place]. He met his while he was in the [employer]. 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 He has 2 adult children, 1 son and 1 daughter. His daughter, Radha, lives locally. Patient is reportedly estranged from his son, Ronal, who lives in [place]. Patient is supported by his daughter and grandson. Spiritual: Patient was raised as a [employer]. He currently does not have a mu-ism home Legal: Patient's daughter, Radha, reports patient has written advance directives and she is designated as the healthcare surrogate decision maker. She will bring copies of these documents to the hospital tomorrow on 10/04/2017. Per 4 to statutes, in the absence of written advanced directives healthcare proxy decision making would fall to the patient's 2 children. Ethical issues impacting care: No known ethical issues impacting care at this time. . Important Contacts Radha Radford, daughter: [phone] Prognosis Patient is an 81-year-old male who has experienced an acute decline over the past 3 months as evidenced by progressively increased weakness, pain, n/v, cachexia and decreased appetite. Recent imaging is suspicious for widespread metastatic disease. Patient has refused biopsy but instead wishes to transition to comfort focused care. Life expectancy is less than 6 months. . Code Status: Full Code Plan * FULL CODE * Patient appears to have limited insight and judgment related to his medical conditions. Patient's daughter, Radha, reports patient has written advance directives and she is designated as the healthcare surrogate decision maker. She will bring copies of these documents to the hospital tomorrow on 10/04/2017. Per 4 to statutes, in the absence of written advanced directives healthcare proxy decision making would fall to the patient's 2 children. * Aggressive goals pending oncology consult and further conversations with patient and family. * Tentative family meeting with patient and daughter tomorrow 10/04/2017 at 3:30 PM. * Palliative care contact information provided to the patient and family. * Discussed patient with bedside nurse, Felicia. * Symptom management: = Nausea/vomiting: Patient c/o nausea with associated vomiting. He reports 2 episodes of vomiting today. PRN Zofran is available every 6 hours-nurse ( Felicia) notified of patient's complaints. = Debility: Patient lives alone but his daughter and grandson would takes turns assisting with his care and/or staying with him. He usually ambulates with a walker or uses a wheelchair. He is quite frail appearing and cachectic. BMI of 17.4. Patient's daughter, Radha, describes a decline over the past 1-2 years stating that she feels the the patient has "given up." * Palliative care will continue to follow this patient throughout his hospitalization to establish stress, assist with symptom management and clarification of medical treatment goals. . Thank you for the opportunity to participate in the care of Mr. Calix. . Attestation To help prompt me to consider important information that might be impacting today's encounter and assessment, information from prior notes written by myself or my colleagues may have been "brought forward" into today's note. My signature on this note, however, is an attestation that I personally performed the exam, history, and/or decision-making noted today, and, unless otherwise indicated, the interactions with patient, family, and staff as well as the review of records all occurred today. I also attest that the listed assessment and stated plan reflect my best clinical judgment today based on the combination of historical information, prior notes, and today's exam/ interactions. When time spent is documented, it refers only to time spent today by the signer, or if indicated, combined time spent today by collaborating physician/nurse practitioner. Yamilex Wells Oct 03, 2017 14:35
[2017-10-03] MEDS: ONDANSETRON HCL 4 MG/2 ML VIAL IVP PRN (16:39)
--- NOTE | 2017-10-03 19:00 | MB ---
cc: Roseline Jones MD DATE OF CONSULT: 10/03/2017 REFERRING PHYSICIAN: Dr. Hammond. CHIEF COMPLAINT: Dr. Hammond requested consultation for Mr. Calix with lung mass suspicious for metastatic bronchogenic carcinoma. HISTORY OF PRESENT ILLNESS: Mr. Calix is an 81-year-old man with history of atrial fibrillation rate controlled, congestive heart failure with ejection fraction 35% to 40%, and recent history of pneumonia. He developed herpes zoster over the right eye about 5 weeks ago. He is improving from that. On the day of presentation, he fell. His daughter found him on the floor. He was getting out of bed and slipped. He denies any loss of consciousness. He usually is able to get around in his home uneventfully. We discussed his gradual decline in performance status over the last several weeks. His appetite has decreased. He has lost some weight. He denies any nausea. He has pain associated with the zoster. He quit smoking 20 years ago. He had a CT scan of the chest in the emergency room that showed a 5.6 cm right hilar mass. There is a 1.9 cm AP window lymph node. There are multiple nodules in both lungs. CT scan of the abdomen shows metastatic disease to the liver. There is a 2.3 cm lesion posteriorly that may be amenable to biopsy. There is a non-obstructing renal calculi. There are bilateral renal and hepatic cysts. He has mild hyponatremia. CBC is normal. His sodium back in July was normal. His liver function is normal. We discussed his symptoms of falling. He is feeling better. The light troubles him from his shingles. Denies any fevers, chills, night sweats. The rest of his review of systems is negative. PAST MEDICAL HISTORY: Arthritis, rate controlled atrial fibrillation, shingles, cardiomyopathy with decreased ejection fraction. PAST SURGICAL HISTORY: Right knee replacement. FAMILY HISTORY: No family history of cancer. Both parents lived to be in their 80s. Denies any cancer in both parents. SOCIAL HISTORY: He quit smoking 20 years ago. He used to drink heavily. Denies any problems with his liver. He denies any illicit drug use. He lives alone. He has a daughter nearby. ALLERGIES: NO KNOWN DRUG ALLERGIES. CURRENT MEDICATIONS: Include Cardura, heparin, Olivia-Colace, Flomax, Valtrex, Zofran. PHYSICAL EXAMINATION: VITAL SIGNS: Temperature 96.2, heart rate 75, respiratory rate 18, blood pressure 99/60, saturation 96%. GENERAL: Mr. Calix is a well-developed, cachectic appearing man, who looks chronically ill. HEENT: His right eye is shut. He has some mild edema and crust over the scalp line. His oropharynx is dry. NECK: Supple. LUNGS: Clear to auscultation. CARDIOVASCULAR: Reveals rate controlled rhythm. ABDOMEN: Benign. LOWER EXTREMITIES: No edema. NEUROLOGIC: Exam is nonfocal. IMAGING STUDIES: Described above. ASSESSMENT AND PLAN: Mr. Calix is an 81-year-old man with multiple medical problems, including atrial fibrillation and cardiomyopathy, decreased ejection fraction. He has had weight loss, recent infection with pneumonia and herpes zoster. Imaging study shows multiple lung lesions and liver lesion suspicious for metastatic disease from a primary bronchogenic carcinoma. We discussed biopsy of the liver lesion. We discussed the risk and benefit of the above and he is electing to proceed. We discussed if this is cancer, it is unlikely to be curable. He is not a surgical candidate. It is likely that he will need systemic treatment. Even with the above, he is willing to proceed with the biopsy. He is willing to consider options for treatment, if necessary. He also would like to know his diagnosis. No specific therapy is required with the above information. We will give further recommendations pending on the result of the biopsy. A CT-guided biopsy of the most peripheral liver lesion will be coordinated. MD AMARA Mohr/VIVIAN/ , 05:20 PM , 06:32 PM
[2017-10-03] MEDS: TAMSULOSIN HCL 0.4 MG CAP PO SCH (21:06)
--- NOTE | 2017-10-03 22:41 | EKG ---
Date Performed: 10/02/2017 Time Performed: 17:20:39 PTAGE: 81 years EKG: ATRIAL FIBRILLATION WITH RAPID VENTRICULAR RESPONSE MARKED LEFT AXIS DEVIATION ABNORMAL ECG PREVIOUS TRACING : 07/07/2017 13.10 Since the prior tracing, there has been no significant rowell DOCTOR: Abby Godfrey Interpretating Date/Time 10/03/2017 22:40:00
[2017-10-04] VITALS: BP 120/78; PULSE 102; RESP 18; TEMP 96.6; O2SAT 95
[2017-10-04 04:00] VITALS: BP 107/78; PULSE 92; RESP 20; TEMP 96.6; O2SAT 93
[2017-10-04] MEDS: ONDANSETRON HCL 4 MG/2 ML VIAL IVP PRN (04:35)
[2017-10-04 07:00] LABS: INTERNATIONAL NORMALIZED RATIO 1.1 RATIO
[2017-10-04 08:00] VITALS: BP 107/73; PULSE 99; RESP 18; TEMP 97; O2SAT 96
[2017-10-04] MEDS: HEPARIN SODIUM - SQ 10,000 UNITS/ML VIAL SQ SCH ×2 (08:43→21:00)
[2017-10-04] MEDS: SODIUM CHLORIDE 0.9% FLUSH 10 ML FLUSH IV FLUSH SCH ×2 (08:44→21:00)
[2017-10-04] MEDS: DOCUSATE SODIUM 50 MG/SENNA 8.6 MG TAB PO SCH ×2 (08:44→21:07)
[2017-10-04] MEDS: DOXAZOSIN MESYLATE 1 MG TAB PO SCH (08:44)
[2017-10-04] MEDS: valACYclovir HCL 500 MG TAB PO SCH ×2 (08:44→21:07)
[2017-10-04 12:00] VITALS: BP 100/63; PULSE 96; RESP 18; TEMP 97.2; O2SAT 97
--- NOTE | 2017-10-04 12:47 | RADRPT ---
EXAM DATE/TIME: 10/04/2017 12:01 [place] COMPARISON: CT ABDOMEN & PELVIS W CONTRAST, October 02, 2017, 18:45. INDICATIONS : Metastases. Evaluate liver mass. ORAL CONTRAST: No oral contrast ingested. RADIATION DOSE: 11.42 CTDIvol (mGy) MEDICAL HISTORY : Cardiovascular disease. SURGICAL HISTORY : None. ENCOUNTER: Initial ACUITY: 4 - 6 days PAIN SCALE: 0/10 LOCATION: Right upper quadrant TECHNIQUE: Volumetric scanning of the abdomen was performed. Using automated exposure control and adjustment of the mA and/or kV according to patient size, radiation dose was kept as low as reasonably achievable to obtain optimal diagnostic quality images. DICOM format image data is available electronically for review and comparison. FINDINGS: LOWER LUNGS: There is a small focus of infiltrate in the posterior lateral right lung base. A tiny pleural-based n odule is present in the posterior medial left lung base. LIVER: A cyst is present in the dome of the left lobe. A low density mass in the posterior segment of the ri ght lobe on the lateral liver surface is visible on noncontrast and amenable to percutaneous biopsy. There is no evidence of biliary ductal dilatation. SPLEEN: Normal size without lesion. PANCREAS: Multiple low density lesions present throughout the pancreas KIDNEYS: Bilateral renal cysts and nonobstructing stones. ADRENAL GLANDS: Within normal limits. AORTA/RETROPERITONEAL: Prominent atherosclerotic changes in the aorta. No evidence of aneurysm. No periaortic adenopathy. BOWEL/MESENTERY: The stomach and visualized small and large bowel demonstrate no abnormality. MUSCULOSKELETAL: Sclerotic lesions in the right iliac crest worrisome for metastatic disease. CONCLUSION: Liver lesion does appear amenable to percutaneous biopsy. Multiple pancreatic masses. Sclerotic lesions in the right iliac crest worrisome for bony metastatic disease as well. Sudhakar Nieto MD on October 04, 2017 at 12:39 Board Certified Radiologist. This report was verified electronically.
[2017-10-04 16:00] VITALS: BP 101/68; PULSE 94; RESP 18; TEMP 97; O2SAT 96
--- NOTE | 2017-10-04 16:57 | HHI.PR ---
Subjective Remarks Nursing denies any deterioration since last night. Patient himself reports no new complaints to me. Objective Vital Signs Date Time Temp Pulse Resp B/P (MAP) Pulse Ox O2 Delivery O2 Flow Rate FiO2 10/04/17 16:00 97.0 94 18 101/68 (79) 96 10/04/17 12:00 97.2 96 18 100/63 (75) 97 10/04/17 08:00 97.0 99 18 107/73 (84) 96 10/04/17 04:00 96.6 92 20 107/78 (88) 93 10/04/17 00:00 96.6 102 18 120/78 (92) 95 10/03/17 20:00 96.8 106 18 118/75 (89) 96 I/O 10/03/17 10/03/17 10/03/17 10/04/17 10/04/17 10/04/17 07:00 15:00 23:00 07:00 15:00 23:00 Intake Total 240 ml 1072 ml 200 ml 400 ml Balance 240 ml 1072 ml 200 ml 400 ml Intake Oral 240 ml 960 ml 200 ml 400 ml IV Total 112 ml # Voids 1 1 2 3 # Bowel Movements 0 Result Diagram: 10/03/17 0649 10/03/17 0649 Imaging Last Impressions Abdomen CT 10/04/17 0000 Signed Impressions: Service Date/Time: Wednesday, October 04, 2017 12:01 - CONCLUSION: Liver lesion does appear amenable to percutaneous biopsy. Multiple pancreatic masses. Sclerotic lesions in the right iliac crest worrisome for bony metastatic disease as well. Sudhakar Nieto MD Abdomen/Pelvis CT 10/02/17 1809 Signed Impressions: Service Date/Time: Monday, October 02, 2017 18:45 - CONCLUSION: 1. 2.3 cm lesion posterior right lobe liver suspicious for metastatic disease. 2. Mildly sclerotic bone lesions in the pelvis as above measuring up to 3.1 cm on the right. Cannot exclude bony metastatic disease. 3. Nonobstructing renal calculi. Bilateral renal cysts and left hepatic cyst. Aston Hare MD Pelvis X-Ray 10/02/17 1652 Signed Impressions: Service Date/Time: Monday, October 02, 2017 17:11 - CONCLUSION: No definite acute bony injury Sudhakar Nieto MD Head CT 10/02/171651 Signed Impressions: Service Date/Time: Monday, October 02, 2017 17:30 - CONCLUSION: No acute intracranial findings. Sudhakar Nieto MD Chest X-Ray 10/02/171651 Signed Impressions: Service Date/Time: Monday, October 02, 2017 17:11 - CONCLUSION: Abnormal chest. Recommend CT for further evaluation Sudhakar Nieto MD Chest CT 10/02/17 0000 Signed Impressions: Service Date/Time: Monday, October 02, 2017 18:45 - CONCLUSION: 1. 5.6 cm right hilar mass most characteristic of malignancy. 1.9 cm AP window lymph node. Multiple nodules in both lungs all of which have short axis diameter is less than a centimeter. Findings are most characteristic of malignancy with metastatic jay disease and probable metastatic parenchymal lung disease. 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 chronic systolic CHF - Continue home medications; stopping IV fluids shingles - continue Valtrex Heparin Be Styles MD Oct 04, 2017 16:57
[2017-10-04] MEDS ORDERED: METOPROLOL TARTRATE 25 MG TAB PO SCH (17:00)
--- NOTE | 2017-10-04 17:23 | HHI.HCPN ---
Reason for visit a. To assist with evaluation and management of symptoms including: nausea/ vomiting, debility, pain b. To assist medical decision maker(s) with: better understanding of current medical conditions; weighing benefits/burdens of medical treatment options; making medical treatment decisions. . Subjective/Interval History Mr. Calix presented to [facility] ED on 10/02/2017 for evaluation status post a fall. Apparently the patient fell out of the bed a few days prior and was too weak to get back up. His family found him approximately 4 days later and brought him to the emergency department for evaluation. Patient had no complaints. Of note, the patient was hospitalized for 3 days in July, for treatment of sepsis, pneumonia and new onset atrial fibrillation. Patient had an echocardiogram on 07/08/17 with EF of 35-40%. He is also being treated for shingles and has been on medications for 5 days. Imaging in the ED was suspicious for widespread metastatic disease. Follow-up visit for symptom management and clarification of medical treatment goals. Patient was seen and assessed in room 8310; patient's daughter (Radha) was also present. Hemodynamically stable. Patient is significantly deconditioned, requiring 2 person assist to reposition in the hospital bed. He appears cachectic and his appetite is reportedly poor. Patient spoke with oncology (Dr. Jones) yesterday 10/03/17; they discussed diagnostic procedures and possible treatment options including the risks and benefits of each. Initially the patient wanted to proceed with a liver biopsy. However after speaking with his daughter, he has decided he wishes to transition to comfort. He has requested hospice care center placement for symptom management of nausea, vomiting and abdominal pain. Discussed with Dr. Styles who is agreeable with this plan. Hospice intake was consulted; spoke with Madeline who will attempt to have a hospice admission nurse with the patient sometime this evening. . Family/friend interactions Met with patient's daughter, Radha, privately and again at patient's bedside. Update provided on patient's clinical condition. She verbalizes understanding that her father's overall prognosis is poor, and she supports his decision to transition to comfort focused care. . Advance Directives Advance Directive Specifics Date completed: 10/04/17 . Health Care Surrogate(s): Patient changed his healthcare surrogate designation form on 10/04/2017. He designated his daughter, Radha Radford, as his healthcare surrogate decision maker. His grandson, Bereket Radford, is now designated as the alternate healthcare surrogate decision maker. Documented care wishes: Patient's daughter, Radha, states the patient has completed written advance directives. She will locate these documents and bring copies tomorrow 2017 when she meets with palliative care. . Significant change in goals: Hospice consult pending. Patient/family requesting hospice care center placement for symptom management of nausea, vomiting and abdominal pain. . Objective Vital Signs Date Time Temp Pulse Resp B/P (MAP) Pulse Ox O2 Delivery O2 Flow Rate FiO2 10/04/17 16:00 97.0 94 18 101/68 (79) 96 10/04/17 12:00 97.2 96 18 100/63 (75) 97 10/04/17 08:00 97.0 99 18 107/73 (84) 96 10/04/17 04:00 96.6 92 20 107/78 (88) 93 10/04/17 00:00 96.6 102 18 120/78 (92) 95 10/03/17 20:00 96.8 106 18 118/75 (89) 96 Intake & Output 10/04/17 10/04/17 07:00 19:00 Intake Total 400 ml Balance 400 ml Intake Oral 400 ml # Voids 3 # Bowel Movements 0 . Physical Exam CONSTITUTIONAL/GENERAL: Frail, elderly male patient in no acute distress TUBES/LINES/DRAINS: SKIN: Ecchymoses on upper extremities. Skin is loose with poor skin turgor. Right upper extremity swollen secondary to infiltrated IV HEAD: Atraumatic. Normocephalic. EYES: Pupils equal and round and reactive. Extraocular motions intact. No scleral icterus. No injection or drainage. Fundi not examined. ENT: Hearing grossly normal. Nose without bleeding or purulent drainage. NECK: Trachea midline. Supple, nontender. No palpable thyroid enlargement or nodularity. CARDIOVASCULAR: Irregularly irregular without murmurs, gallops, or rubs. No JVD. Peripheral pulses symmetric. RESPIRATORY/CHEST: Symmetric, unlabored respirations. Clear to auscultation. Breath sounds equal bilaterally. No wheezes, rales, or rhonchi. GASTROINTESTINAL: Abdomen soft, slightly tender to palpation. Bowel sounds present. GENITOURINARY: Without palpable bladder distension. MUSCULOSKELETAL: Extremities without clubbing, cyanosis, or edema. No mottling or clubbing. LYMPHATICS: No palpable cervical or supraclavicular adenopathy. NEUROLOGICAL: Awake lethargic. Able to answer questions and follow commands. PSYCHIATRIC: No obvious anxiety/depression. No apparent hallucinations or other psychotic thought process. . Diagnostic Tests Laboratory Laboratory Tests Test 10/02/17 17:00 10/02/17 17:30 10/02/17 20:20 10/03/17 06:49 White Blood Count 12.4 TH/MM3 (4.0-11.0) 8.7 TH/MM3 (4.0-11.0) Red Blood Count 5.39 MIL/MM3 (4.50-5.90) 4.84 MIL/MM3 (4.50-5.90) Hemoglobin 16.1 GM/DL (13.0-17.0) 14.4 GM/DL (13.0-17.0) Hematocrit 49.3 % (39.0-51.0) 44.7 % (39.0-51.0) Mean Corpuscular Volume 91.5 FL (80.0-100.0) 92.5 FL (80.0-100.0) Mean Corpuscular Hemoglobin 29.9 PG (27.0-34.0) 29.7 PG (27.0-34.0) Mean Corpuscular Hemoglobin Concent 32.7 % (32.0-36.0) 32.2 % (32.0-36.0) Red Cell Distribution Width 15.5 % (11.6-17.2) 15.4 % (11.6-17.2) Platelet Count 304 TH/MM3 (150-450) 267 TH/MM3 (150-450) Mean Platelet Volume 8.3 FL (7.0-11.0) 8.8 FL (7.0-11.0) Neutrophils (%) (Auto) 76.2 % (16.0-70.0) 71.8 % (16.0-70.0) Lymphocytes (%) (Auto) 16.0 % (9.0-44.0) 13.1 % (9.0-44.0) Monocytes (%) (Auto) 3.4 % (0.0-8.0) 7.7 % (0.0-8.0) Eosinophils (%) (Auto) 2.7 % (0.0-4.0) 6.6 % (0.0-4.0) Basophils (%) (Auto) 1.7 % (0.0-2.0) 0.8 % (0.0-2.0) Neutrophils # (Auto) 9.5 TH/MM3 (1.8-7.7) 6.2 TH/MM3 (1.8-7.7) Lymphocytes # (Auto) 2.0 TH/MM3 (1.0-4.8) 1.1 TH/MM3 (1.0-4.8) Monocytes # (Auto) 0.4 TH/MM3 (0-0.9) 0.7 TH/MM3 (0-0.9) Eosinophils # (Auto) 0.3 TH/MM3 (0-0.4) 0.6 TH/MM3 (0-0.4) Basophils # (Auto) 0.2 TH/MM3 (0-0.2) 0.1 TH/MM3 (0-0.2) CBC Comment DIFF FINAL DIFF FINAL Differential Comment Prothrombin Time 11.3 SEC (9.8-11.6) Prothromb Time International Ratio 1.1 RATIO Activated Partial Thromboplast Time 25.9 SEC (24.3-30.1) Blood Urea Nitrogen 25 MG/DL (7-18) 23 MG/DL (7-18) Creatinine 1.20 MG/DL (0.60-1.30) 0.90 MG/DL (0.60-1.30) Random Glucose 107 MG/DL (74-106) 88 MG/DL (74-106) Total Protein 8.8 GM/DL (6.4-8.2) 7.3 GM/DL (6.4-8.2) Albumin 3.5 GM/DL (3.4-5.0) 3.0 GM/DL (3.4-5.0) Calcium Level 9.3 MG/DL (8.5-10.1) 8.7 MG/DL (8.5-10.1) Alkaline Phosphatase 115 U/L (45-117) 97 U/L (45-117) Aspartate Amino Transf (AST/SGOT) 29 U/L (15-37) 27 U/L (15-37) Alanine Aminotransferase (ALT/SGPT) 24 U/L (12-78) 29 U/L (12-78) Total Bilirubin 1.1 MG/DL (0.2-1.0) 0.7 MG/DL (0.2-1.0) Sodium Level 132 MEQ/L (136-145) 133 MEQ/L (136-145) Potassium Level 4.7 MEQ/L (3.5-5.1) 4.2 MEQ/L (3.5-5.1) Chloride Level 100 MEQ/L (98-107) 100 MEQ/L (98-107) Carbon Dioxide Level 20.4 MEQ/L (21.0-32.0) 24.7 MEQ/L (21.0-32.0) Anion Gap 12 MEQ/L (5-15) 8 MEQ/L (5-15) Estimat Glomerular Filtration Rate 58 ML/MIN (>89) 81 ML/MIN (>89) Total Creatine Kinase 171 U/L (39-308) Creatine Kinase MB 3.7 NG/ML (0.5-3.6) Troponin I LESS THAN 0.02 NG/ML B-Type Natriuretic Peptide 77 PG/ML (0-100) Lipase 1220 U/L (73-393) Thyroid Stimulating Hormone 3rd Gen 7.510 uIU/ML (0.358-3.740) Free Thyroxine 1.26 NG/DL (0.76-1.46) Free Triiodothyronine (T3) pg/dL 2.06 PG/ML (2.18-3.98) Urine Color OLY (YELLW/STRAW) Urine Turbidity CLEAR (CLEAR) Urine pH 5.5 (5.0-8.5) Urine Specific [place] 1.022 (1.002-1.035) Urine Protein TRACE mg/dL (NEG-TRACE) Urine Glucose (UA) NEG mg/dL (NEG) Urine Ketones NEG mg/dL (NEG) Urine Occult Blood TRACE (NEG) Urine Nitrite NEG (NEG) Urine Bilirubin NEG (NEG) Urine Leukocyte Esterase NEG (NEG) Urine Squamous Epithelial Cells 0-5 /hpf (0-5) Microscopic Urinalysis Comment CULT NOT INDICATED Test 10/04/17 05:30 Prothrombin Time 11.0 SEC (9.8-11.6) Prothromb Time International Ratio 1.1 RATIO Activated Partial Thromboplast Time 26.9 SEC (24.3-30.1) . Result Diagram: 10/03/17 0649 10/03/17 0649 Imaging Last [address] 10/04/17 0000 Signed Impressions: Service Date/Time: Wednesday, October 04, 2017 12:01 - CONCLUSION: Liver lesion does appear amenable to percutaneous biopsy. Multiple pancreatic masses. Sclerotic lesions in the right iliac crest worrisome for bony metastatic disease as well. Sudhakar Nieto MD Abdomen/Pelvis CT 10/02/171808 Signed Impressions: Service Date/Time: Monday, October 02, 2017 18:45 - CONCLUSION: 1. 2.3 cm lesion posterior right lobe liver suspicious for metastatic disease. 2. Mildly sclerotic bone lesions in the pelvis as above measuring up to 3.1 cm on the right. Cannot exclude bony metastatic disease. 3. Nonobstructing renal calculi. Bilateral renal cysts and left hepatic cyst. Aston Hare MD Pelvis X-Ray 10/02/171651 Signed Impressions: Service Date/Time: Monday, October 02, 2017 17:11 - CONCLUSION: No definite acute bony injury Sudhakar Nieto MD Head CT 10/02/171651 Signed Impressions: Service Date/Time: Monday, October 02, 2017 17:30 - CONCLUSION: No acute intracranial findings. Sudhakar Nieto MD Chest X-Ray 10/02/171651 Signed Impressions: Service Date/Time: Monday, October 02, 2017 17:11 - CONCLUSION: Abnormal chest. Recommend CT for further evaluation Sudhakar Nieto MD Chest CT 10/02/17 0000 Signed Impressions: Service Date/Time: Monday, October 02, 2017 18:45 - CONCLUSION: 1. 5.6 cm right hilar mass most characteristic of malignancy. 1.9 cm AP window lymph node. Multiple nodules in both lungs all of which have short axis diameter is less than a centimeter. Findings are most characteristic of malignancy with metastatic jay disease and probable metastatic parenchymal lung disease. Aston Hare MD . Procedures Assessment and Plan Disease Oriented Problem List: (1) Atrial fibrillation (2) CHF (congestive heart failure) (3) Shingles outbreak (4) Metastatic lung cancer (metastasis from lung to other site) Comment: Suspected. Oncology consult pending. Symptom Scale: (1) Debility (2) Nausea and vomiting Pertinent Non-Medical Issues Psychosocial: Patient is originally from [place]. He met his while he was in the [employer]. 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 He has 2 adult children, 1 son and 1 daughter. His daughter, Radha, lives locally. Patient is reportedly estranged from his son, Ronal, who lives in [place]. Patient is supported by his daughter and grandson. Spiritual: Patient was raised as a [facility] [employer]. He currently does not have a mormonism home Legal: Healthcare surrogate designation form was redone today 10/04/2017. Patient designates his daughter, Radha as the primary healthcare surrogate decision maker. His grandson, Bereket is now designated as the alternate healthcare surrogate decision maker. Ethical issues impacting care: No known ethical issues impacting care at this time. . Important Contacts Radha Radford, daughter: [phone] Prognosis Patient is an 81-year-old male who has experienced an acute decline over the past 3 months as evidenced by progressively increased weakness, pain, n/v, cachexia and decreased appetite. Recent imaging is suspicious for widespread metastatic disease. Patient has refused biopsy but instead wishes to transition to comfort focused care. Life expectancy is less than 6 months. . Code Status: No Code Plan * NO CODE-DNR/DNI * Healthcare surrogate designation form was redone today 10/04/2017. Patient designates his daughter, Radha as the primary healthcare surrogate decision maker. His grandson, Bereket is now designated as the alternate healthcare surrogate decision maker. * Patient spoke with oncology (Dr. Jones) yesterday 10/03/17; they discussed diagnostic procedures and possible treatment options including the risks and benefits of each. Initially the patient wanted to proceed with a liver biopsy. However after speaking with his daughter, he has decided he wishes to transition to comfort. He has requested hospice care center placement for symptom management of nausea, vomiting and abdominal pain. Discussed with Dr. Styles who is agreeable with this plan. * Hospice intake was consulted; spoke with Madeline who will attempt to have a hospice admission nurse with the patient sometime this evening. Nurse notified. * Symptom management: = Nausea/vomiting: Patient c/o nausea with associated vomiting. He reports 2 episodes of vomiting today. PRN Zofran is available every 6 hours; patient has received 2 doses in the past 24 hours. = Debility: Patient lives alone but his daughter and grandson would takes turns assisting with his care and/or staying with him. He usually ambulates with a walker or uses a wheelchair. He is quite frail appearing and cachectic. BMI of 17.4. Patient's daughter, Radha, describes a decline over the past 1-2 years stating that she feels the the patient has "given up." Most recently the patient has experienced an acute decline as evidenced by progressively increased weakness, falls and decreased appetite. = Pain: Multifactorial. Patient reporting dull aching pain and fullness in his abdomen which may be related to metastatic disease. LBM unknown. Additional contributing factors may include recent fall, invasive lines, immobility, Impaired skin integrity. No medications have been ordered for pain management-will reevaluate when admitted to hospice * Palliative care will continue to follow this patient throughout his hospitalization to establish stress, assist with symptom management and clarification of medical treatment goals. . Attestation To help prompt me to consider important information that might be impacting today's encounter and assessment, information from prior notes written by myself or my colleagues may have been "brought forward" into today's note. My signature on this note, however, is an attestation that I personally performed the exam, history, and/or decision-making noted today, and, unless otherwise indicated, the interactions with patient, family, and staff as well as the review of records all occurred today. I also attest that the listed assessment and stated plan reflect my best clinical judgment today based on the combination of historical information, prior notes, and today's exam/ interactions. When time spent is documented, it refers only to time spent today by the signer, or if indicated, combined time spent today by collaborating physician/nurse practitioner. . Yamilex Wells Oct 04, 2017 17:23
[2017-10-04] MEDS ORDERED: ACETAMINOPHEN/HYDROcodone 325 MG/7.5 MG TAB PO PRN (18:45)
[2017-10-04] MEDS ORDERED: ACETAMINOPHEN/HYDROcodone 325 MG/5 MG TAB PO PRN (18:45)
== END 2017-10-04 22:07 | disposition hospice, inpatient (51) | DRG 181 ==
LOC: PHED 16:24 → PHEDA 18:40 → PH3B 21:14
PROVIDERS: ADMIT Hospitalist; ATTEND Hospitalist
DX: C34.90 Malignant neoplasm of unspecified part of unspecified bronchus or lung (principal); C78.7 Secondary malignant neoplasm of liver and intrahepatic bile duct; C78.00 Secondary malignant neoplasm of unspecified lung; C78.89 Secondary malignant neoplasm of other digestive organs; R64 Cachexia; C79.51 Secondary malignant neoplasm of bone; I48.91 Unspecified atrial fibrillation; I42.9 Cardiomyopathy, unspecified; I50.22 Chronic systolic (congestive) heart failure; Z68.1 Body mass index [BMI] 19.9 or less, adult; E87.1 Hypo-osmolality and hyponatremia; E86.0 Dehydration; B02.9 Zoster without complications; N28.1 Cyst of kidney, acquired; Z96.651 Presence of right artificial knee joint; H91.90 Unspecified hearing loss, unspecified ear; M19.90 Unspecified osteoarthritis, unspecified site; Z91.81 History of falling; Z87.891 Personal history of nicotine dependence; N20.0 Calculus of kidney; Z51.5 Encounter for palliative care; W19.XXXA Unspecified fall, initial encounter; Z63.8 Other specified problems related to primary support group
CPT/HCPCS: 70450; 71045; 71260; 72170; 74150; 74177; 80053; 81001; 82550; 82552; 83690; 83880; 84439; 84443; 84481; 84484; 85025; 85610; 85730; 93005; J1644; J2405; J7030; Q9967